=== PATIENT | male | born 1960 | race Caucasian/White ===

== ENCOUNTER 2017-09-09 09:50 | Inpatient (IN) | payer OTHER ==
[2017-09-09 09:57] LABS: POC GLUCOSE 512 mg/dL (70-99)
[2017-09-09 10:13] LABS: BASO % 0 % (0-3); EOS % 0 % (0-3); HEMATOCRIT 41.7 % (39.0-53.0); HEMOGLOBIN 14.1 g/dL (13.0-17.5); LYMPH # 0.2 x10^3/uL (1.0-4.8); LYMPH % 2 % (24-48); MEAN CORPUSCULAR HEMOGLOBIN 32 pg (25-35); MEAN CORPUSCULAR HGB CONC 34 g/dL (31-37); MEAN CORPUSCULAR VOLUME 93 fL (79-100); MONO # 1.7 x10^3/uL (0.0-1.1); MONO % 12 % (0-9); NEUT # 12.7 x10^3uL (1.8-7.7); NEUT % 87 % (31-73); PLATELET COUNT 273 x10^3/uL (140-400); RED BLOOD COUNT 4.48 x10^6/uL (4.30-5.70); RED CELL DISTRIBUTION WIDTH 15.3 % (11.5-14.5); WHITE BLOOD COUNT 14.7 x10^3/uL (4.0-11.0)
[2017-09-09 10:14] LABS: ADD MAN DIFF? YES
[2017-09-09 10:27] LABS: ALBUMIN 3.4 g/dL (3.4-5.0); ALBUMIN/GLOBULIN RATIO 0.7 (1.0-1.7); ALK PHOS 89 U/L (46-116); ALT (SGPT) 22 U/L (16-63); ANION GAP 29 (6-14); AST (SGOT) 9 U/L (15-37); BLOOD UREA NITROGEN 21 mg/dL (8-26); BUN/CREATININE RATIO 11 (6-20); CALCIUM 9.9 mg/dL (8.5-10.1); CHLORIDE 96 mmol/L (98-107); CREATININE 1.9 mg/dL (0.7-1.3); GFR 36.5; MAGNESIUM 2.2 mg/dL (1.8-2.4); POTASSIUM 5.5 mmol/L (3.5-5.1); SODIUM 133 mmol/L (136-145); TOTAL BILIRUBIN 0.6 mg/dL (0.2-1.0)
[2017-09-09] MEDS: ONDANSETRON PF 4 MG/2 ML VIAL. IV (10:28)
[2017-09-09] MEDS: IV NORMAL SALINE 1000ML BAG 1,000 ML IV ×4 (10:28→11:15)
[2017-09-09 10:32] LABS: GLUCOSE 588 mg/dL (70-99)
[2017-09-09 10:33] LABS: CARBON DIOXIDE 8 mmol/L (21-32)
[2017-09-09 10:41] LABS: PH ABG 7.11 (7.35-7.45)
[2017-09-09 10:42] LABS: BASE EXCESS ABG -23 mmol/L (-3-3); FIO2 ABG 21; HCO3 ABG 4 mmol/L (21-28); PCO2 ABG 12 mmHg (35-46); PO2 ABG 96 mmHg (65-108); SAT O2 ABG 96 % (92-99)
[2017-09-09] MEDS ORDERED: INSULIN REGULAR IV (10:44)
[2017-09-09] MEDS: IV 1/2 NORMAL SALINE 500 ML IV (10:45)
[2017-09-09] MEDS: SODIUM BICARB ADULT 8.4% 50 MEQ/50 ML DISP.SYRIN. IV (10:52)
[2017-09-09] MEDS: INSULIN REGULAR VIAL 150 UNIT in 0.9 % SODIUM CHLORIDE 150ML 150 ML IV ×2 (10:58→21:51)
[2017-09-09] MEDS: IV DEXTROSE 5 %-0.45 % NACL 1,000 ML IV (10:59)
[2017-09-09] MEDS ORDERED: ONDANSETRON ODT 4 MG TAB.RAPDIS. PO (11:00)
[2017-09-09] MEDS ORDERED: traMADol 50 MG TABLET PO (11:00)
[2017-09-09 11:05] LABS: LACTIC ACID 3.2 mmol/L (0.4-2.0)
[2017-09-09 11:19] LABS: % BANDS 39 % (0-9); % LYMPHS 2 % (24-48); % METAS 3 % (0-0); % MONOS 12 % (0-10); % SEGS 44 % (35-66)
[2017-09-09] MEDS: IV 1/2 NORMAL SALINE 1,000 ML IV (11:19)
[2017-09-09 11:20] LABS: PLT ESTIMATE ADEQUATE (ADEQUATE); TOXIC VACUOLATION SLIGHT
[2017-09-09 11:56] LABS: POC GLUCOSE 469 mg/dL (70-99)
[2017-09-09 12:01] LABS: BILIRUBIN,URINE SMALL (NEG); CLARITY,URINE CLEAR; COLOR,URINE YELLOW; GLUCOSE,URINE >=1000 mg/dL (NEG); NITRITE,URINE NEGATIVE (NEG); PH,URINE 5.5; PROTEIN,URINE 30 mg/dL (NEG-TRACE); UROBILINOGEN,URINE 0.2 mg/dL (0.2 mg/dL)
[2017-09-09 12:02] LABS: BACTERIA,URINE FEW /HPF (0-FEW); HYALINE CASTS, URINE OCCASIONAL /HPF; RBC,URINE OCC /HPF (0-2); SQUAMOUS EPITHELIAL CELL,UR OCC /LPF; WBC,URINE OCC /HPF (0-4)
[2017-09-09 12:52] LABS: ANION GAP 27 (6-14); BLOOD UREA NITROGEN 20 mg/dL (8-26); CALCIUM 9.1 mg/dL (8.5-10.1); CHLORIDE 101 mmol/L (98-107); CREATININE 1.6 mg/dL (0.7-1.3); GFR 44.5; GLUCOSE 455 mg/dL (70-99); POTASSIUM 4.4 mmol/L (3.5-5.1); SODIUM 136 mmol/L (136-145)
[2017-09-09 12:54] LABS: CARBON DIOXIDE 8 mmol/L (21-32)
[2017-09-09 12:58] LABS: POC GLUCOSE 401 mg/dL (70-99)
[2017-09-09 13:00] LABS: LACTIC ACID 2.4 mmol/L (0.4-2.0)
[2017-09-09 13:28] LABS: MAGNESIUM 2.3 mg/dL (1.8-2.4)
[2017-09-09 14:25] LABS: POC GLUCOSE 335 mg/dL (70-99)
[2017-09-09 15:12] LABS: POC GLUCOSE 287 mg/dL (70-99)
[2017-09-09 16:02] LABS: POC GLUCOSE 247 mg/dL (70-99)
[2017-09-09 17:19] LABS: ANION GAP 19 (6-14); BLOOD UREA NITROGEN 16 mg/dL (8-26); CALCIUM 8.2 mg/dL (8.5-10.1); CHLORIDE 105 mmol/L (98-107); CREATININE 1.3 mg/dL (0.7-1.3); GFR 56.5; GLUCOSE 259 mg/dL (70-99); MAGNESIUM 1.9 mg/dL (1.8-2.4); PHOSPHORUS 1.1 mg/dL (2.6-4.7); POTASSIUM 3.5 mmol/L (3.5-5.1); SODIUM 135 mmol/L (136-145)
[2017-09-09 17:23] LABS: CARBON DIOXIDE 11 mmol/L (21-32)
[2017-09-09 17:26] LABS: POC GLUCOSE 219 mg/dL (70-99)
[2017-09-09 17:40] LABS: LACTIC ACID 1.6 mmol/L (0.4-2.0)
[2017-09-09] MEDS: IV DEXTROSE 5% - 0.9 % NACL 1,000 ML IV ×2 (17:45→21:45)
[2017-09-09 18:12] LABS: POC GLUCOSE 200 mg/dL (70-99)
[2017-09-09] MEDS: ALBUTEROL SULFATE 2.5 MG/3 ML NEBU. NEB ×2 (18:17→21:16)
[2017-09-09 19:54] LABS: POC GLUCOSE 192 mg/dL (70-99)
[2017-09-09 20:41] LABS: POC GLUCOSE 215 mg/dL (70-99)
[2017-09-09 21:09] LABS: MRSA BY PCR Negative (Negative)
[2017-09-09 21:14] LABS: ANION GAP 15 (6-14); BLOOD UREA NITROGEN 14 mg/dL (8-26); CALCIUM 8.7 mg/dL (8.5-10.1); CARBON DIOXIDE 13 mmol/L (21-32); CHLORIDE 106 mmol/L (98-107); CREATININE 1.3 mg/dL (0.7-1.3); GFR 56.5; GLUCOSE 224 mg/dL (70-99); MAGNESIUM 1.6 mg/dL (1.8-2.4); SODIUM 134 mmol/L (136-145)
[2017-09-09 21:19] LABS: POTASSIUM 2.6 mmol/L (3.5-5.1)
[2017-09-09 21:30] LABS: PHOSPHORUS < 0.5 mg/dL (2.6-4.7)
[2017-09-09 21:38] LABS: NT-PRO BNP 825 pg/mL (0-124)
[2017-09-09] MEDS ORDERED: NOREPINEPHRIN PREMIX 250 ML IV (21:45)
[2017-09-09] MEDS: POTASSIUM CHLORIDE IV (21:50)
[2017-09-09] MEDS: 1/2 NORMAL SALINE IV (21:50)
[2017-09-09] MEDS: cefTRIAXone IV Push 1 GM VIAL. IVP (22:21)
[2017-09-09 22:23] LABS: HEMOGLOBIN A1C 11.7 % (4.8-5.6)
[2017-09-09 22:32] LABS: POC GLUCOSE 212 mg/dL (70-99)
[2017-09-09] MEDS: SODIUM PHOSPHATE 40 MMOL in IV NORMAL SALINE 500ML BAG 500 ML IV (22:47)
[2017-09-09] MEDS: MAGNESIUM SULFATE 4GM 100 ML IV (22:47)
[2017-09-09 23:12] LABS: POC GLUCOSE 205 mg/dL (70-99)
[2017-09-10] LABS: POC GLUCOSE 190 mg/dL (70-99)
[2017-09-10 01:00] LABS: POC GLUCOSE 163 mg/dL (70-99)
[2017-09-10] MEDS: IV DEXTROSE 5% - 0.9 % NACL 1,000 ML IV ×2 (01:45→05:45)
[2017-09-10 02:56] LABS: POC GLUCOSE 161 mg/dL (70-99)
[2017-09-10 03:02] LABS: POC GLUCOSE 135 mg/dL (70-99)
[2017-09-10] MEDS: POTASSIUM CL 40MEQ IN 0.9%NACL 1,000 ML IV ×2 (03:39→13:31)
[2017-09-10 04:26] LABS: POC GLUCOSE 137 mg/dL (70-99)
[2017-09-10 05:04] LABS: ADD MAN DIFF? NO
[2017-09-10 05:13] LABS: BASO % 0 % (0-3); EOS % 0 % (0-3); HEMATOCRIT 35.5 % (39.0-53.0); HEMOGLOBIN 12.7 g/dL (13.0-17.5); LYMPH # 0.3 x10^3/uL (1.0-4.8); LYMPH % 5 % (24-48); MEAN CORPUSCULAR HEMOGLOBIN 31 pg (25-35); MEAN CORPUSCULAR HGB CONC 36 g/dL (31-37); MEAN CORPUSCULAR VOLUME 88 fL (79-100); MONO % 18 % (0-9); NEUT # 4.2 x10^3uL (1.8-7.7); NEUT % 77 % (31-73); PLATELET COUNT 169 x10^3/uL (140-400); RED BLOOD COUNT 4.05 x10^6/uL (4.30-5.70); RED CELL DISTRIBUTION WIDTH 14.2 % (11.5-14.5); WHITE BLOOD COUNT 5.5 x10^3/uL (4.0-11.0)
[2017-09-10 05:28] LABS: POC GLUCOSE 150 mg/dL (70-99)
[2017-09-10 05:45] LABS: ANION GAP 12 (6-14); BLOOD UREA NITROGEN 11 mg/dL (8-26); CALCIUM 9.3 mg/dL (8.5-10.1); CARBON DIOXIDE 17 mmol/L (21-32); CHLORIDE 107 mmol/L (98-107); CREATININE 1.1 mg/dL (0.7-1.3); GFR 68.5; GLUCOSE 146 mg/dL (70-99); SODIUM 136 mmol/L (136-145)
[2017-09-10 05:49] LABS: POTASSIUM 2.8 mmol/L (3.5-5.1)
[2017-09-10] MEDS ORDERED: POTASSIUM CL 40MEQ D5-0.45NACL 1,000 ML IV (06:00)
[2017-09-10] MEDS: 1/2 NORMAL SALINE IV (06:10)
[2017-09-10] MEDS: POTASSIUM CHLORIDE IV (06:10)
[2017-09-10 06:38] LABS: POC GLUCOSE 131 mg/dL (70-99)
[2017-09-10] MEDS: IV NORMAL SALINE 500ML BAG 500 ML IV ×2 (08:30→12:05)
[2017-09-10] MEDS: ALBUTEROL SULFATE 2.5 MG/3 ML NEBU. NEB ×4 (08:51→19:49)
[2017-09-10] MEDS: IV NORMAL SALINE 1000ML BAG 1,000 ML IV ×2 (08:59→10:02)
[2017-09-10] MEDS ORDERED: MAGNESIUM SULFATE 4GM 100 ML IV (09:00)
[2017-09-10 09:38] LABS: POC GLUCOSE 102 mg/dL (70-99)
[2017-09-10] MEDS: IV DEXTROSE 5 %-0.45 % NACL 1,000 ML IV (09:45)
[2017-09-10] MEDS: NOREPINEPHRIN PREMIX 250 ML IV (09:51)
[2017-09-10 10:08] LABS: BASE EXCESS ABG -13 mmol/L (-3-3); HCO3 ABG 16 mmol/L (21-28); PCO2 ABG 50 mmHg (35-46); PO2 ABG 62 mmHg (65-108); SAT O2 ABG 91 % (92-99)
[2017-09-10 10:09] LABS: FIO2 ABG 36; PH ABG 7.14 (7.35-7.45)
[2017-09-10] MEDS ORDERED: DEXTROSE 50% 25 GM / 50ML DISP.SYRIN. IV (10:30)
[2017-09-10] MEDS: SODIUM BICARBONATE VIAL 100 MEQ in IV 1/2 NORMAL SALINE 1,000 ML IV ×2 (10:51→21:31)
[2017-09-10 11:09] LABS: POC GLUCOSE 107 mg/dL (70-99)
[2017-09-10 11:09] LABS: POC GLUCOSE 139 mg/dL (70-99)
[2017-09-10 11:29] LABS: POC GLUCOSE 174 mg/dL (70-99)
[2017-09-10] MEDS: VASOPRESSIN 40 UNIT in IV NORMAL SALINE 100ML 100 ML IV (11:45)
[2017-09-10 13:31] LABS: POC GLUCOSE 256 mg/dL (70-99)
[2017-09-10] MEDS: INSULIN LISPRO 300 UNITS/3 ML INSULN.PEN. SQ ×3 (14:09→17:17)
[2017-09-10] MEDS: MAGNESIUM SULFATE 2GM 50 ML IV (14:15)
[2017-09-10] MEDS ORDERED: AZITHRMYCN 500MG IVPB FOR OMNI 250 ML IV (14:15)
[2017-09-10] MEDS: AZITHROMYCIN 500 MG in IV NORMAL SALINE 250ML 250 ML IV (15:13)
[2017-09-10] MEDS: ENOXAPARIN 40 MG/0.4 ML SYRINGE. SQ (15:14)
[2017-09-10 16:27] LABS: ANION GAP 20 (6-14); BLOOD UREA NITROGEN 17 mg/dL (8-26); CALCIUM 7.4 mg/dL (8.5-10.1); CHLORIDE 106 mmol/L (98-107); GFR 76.5; GLUCOSE 323 mg/dL (70-99); POTASSIUM 3.7 mmol/L (3.5-5.1); SODIUM 137 mmol/L (136-145)
[2017-09-10 16:29] LABS: CARBON DIOXIDE 11 mmol/L (21-32)
[2017-09-10] MEDS: SODIUM BICARB ADULT 8.4% 50 MEQ/50 ML DISP.SYRIN. IV ×2 (17:06→17:07)
[2017-09-10 17:15] LABS: MAGNESIUM 2.3 mg/dL (1.8-2.4)
[2017-09-10 17:28] LABS: POC GLUCOSE 282 mg/dL (70-99)
[2017-09-10] MEDS ORDERED: INSULIN GLARGINE 300 UNITS/3 ML INSULN.PEN. SQ (21:00)
[2017-09-10] MEDS: PIPERACILLIN/TAZOBACTAM 3.375 GM in IV NORMAL SALINE 50ML 50 ML IV (21:31)
[2017-09-10] MEDS: INSULIN GLARGINE 300 UNITS/3 ML INSULN.PEN. SQ (21:49)
[2017-09-10] MEDS: ONDANSETRON PF 4 MG/2 ML VIAL. IV (22:36)
[2017-09-10 22:39] LABS: POC GLUCOSE 284 mg/dL (70-99)
[2017-09-11] MEDS: ONDANSETRON PF 4 MG/2 ML VIAL. IV (03:40)
[2017-09-11] MEDS: NOREPINEPHRIN PREMIX 250 ML IV ×4 (05:00→23:27)
[2017-09-11] MEDS: SODIUM BICARBONATE VIAL 100 MEQ in IV 1/2 NORMAL SALINE 1,000 ML IV ×2 (05:00→12:22)
[2017-09-11] MEDS: PIPERACILLIN/TAZOBACTAM 3.375 GM in IV NORMAL SALINE 50ML 50 ML IV ×4 (06:11→23:44)
[2017-09-11] MEDS: PHENYLEPHRINE INJ 80 MG in IV NORMAL SALINE 250ML 250 ML IV (06:32)
[2017-09-11 06:33] LABS: ADD MAN DIFF? NO
[2017-09-11 06:37] LABS: BASO % 0 % (0-3); EOS % 0 % (0-3); HEMATOCRIT 33.1 % (39.0-53.0); HEMOGLOBIN 11.3 g/dL (13.0-17.5); LYMPH # 0.4 x10^3/uL (1.0-4.8); LYMPH % 2 % (24-48); MEAN CORPUSCULAR HEMOGLOBIN 31 pg (25-35); MEAN CORPUSCULAR HGB CONC 34 g/dL (31-37); MEAN CORPUSCULAR VOLUME 91 fL (79-100); MONO # 2.2 x10^3/uL (0.0-1.1); MONO % 11 % (0-9); NEUT % 87 % (31-73); PLATELET COUNT 261 x10^3/uL (140-400); RED BLOOD COUNT 3.62 x10^6/uL (4.30-5.70); WHITE BLOOD COUNT 19.6 x10^3/uL (4.0-11.0)
[2017-09-11 06:49] LABS: ANION GAP 14 (6-14); BLOOD UREA NITROGEN 27 mg/dL (8-26); CALCIUM 7.4 mg/dL (8.5-10.1); CARBON DIOXIDE 19 mmol/L (21-32); CHLORIDE 108 mmol/L (98-107); CREATININE 1.7 mg/dL (0.7-1.3); GFR 41.5; GLUCOSE 356 mg/dL (70-99); POTASSIUM 4.6 mmol/L (3.5-5.1); SODIUM 141 mmol/L (136-145)
[2017-09-11] MEDS: IV NORMAL SALINE 500ML BAG 500 ML IV (07:30)
[2017-09-11] MEDS: ALBUTEROL SULFATE 2.5 MG/3 ML NEBU. NEB ×4 (07:40→19:58)
[2017-09-11] MEDS: INSULIN LISPRO 300 UNITS/3 ML INSULN.PEN. SQ ×4 (08:35→12:00)
[2017-09-11 08:57] LABS: POC GLUCOSE 337 mg/dL (70-99)
[2017-09-11 09:20] LABS: HCO3 ABG 10 mmol/L (21-28); PCO2 ABG 30 mmHg (35-46); PH ABG 7.13 (7.35-7.45); PO2 ABG 79 mmHg (65-108)
[2017-09-11 09:21] LABS: BASE EXCESS ABG -18 mmol/L (-3-3); FIO2 ABG 50; O2 DELIVERY DEVICE Venti Mask; SAT O2 ABG 96 % (92-99)
[2017-09-11] MEDS ORDERED: SODIUM BICARB ADULT 8.4% 50 MEQ/50 ML DISP.SYRIN. (09:28)
[2017-09-11] MEDS: SODIUM BICARB ADULT 8.4% 50 MEQ/50 ML DISP.SYRIN. IV ×2 (09:32)
[2017-09-11 09:48] LABS: POC GLUCOSE 420 mg/dL (70-99)
[2017-09-11 10:10] LABS: ADD MAN DIFF? NO
[2017-09-11 10:12] LABS: BASO % 0 % (0-3); EOS % 0 % (0-3); HEMATOCRIT 30.1 % (39.0-53.0); HEMOGLOBIN 10.3 g/dL (13.0-17.5); LYMPH # 0.2 x10^3/uL (1.0-4.8); LYMPH % 2 % (24-48); MEAN CORPUSCULAR HEMOGLOBIN 31 pg (25-35); MEAN CORPUSCULAR HGB CONC 34 g/dL (31-37); MEAN CORPUSCULAR VOLUME 91 fL (79-100); MONO # 1.2 x10^3/uL (0.0-1.1); MONO % 11 % (0-9); NEUT # 9.6 x10^3uL (1.8-7.7); NEUT % 87 % (31-73); PLATELET COUNT 178 x10^3/uL (140-400); RED BLOOD COUNT 3.31 x10^6/uL (4.30-5.70); RED CELL DISTRIBUTION WIDTH 14.9 % (11.5-14.5)
[2017-09-11] MEDS: IV 1/2 NORMAL SALINE 1,000 ML IV ×4 (10:14→21:53)
[2017-09-11] MEDS: INSULIN REGULAR VIAL 150 UNIT in 0.9 % SODIUM CHLORIDE 150ML 150 ML IV ×4 (10:27→21:22)
[2017-09-11 10:30] LABS: ANION GAP 21 (6-14); BLOOD UREA NITROGEN 33 mg/dL (8-26); CALCIUM 7.4 mg/dL (8.5-10.1); CARBON DIOXIDE 14 mmol/L (21-32); CHLORIDE 105 mmol/L (98-107); CREATININE 2.1 mg/dL (0.7-1.3); GFR 32.5; GLUCOSE 467 mg/dL (70-99); POTASSIUM 3.8 mmol/L (3.5-5.1); SODIUM 140 mmol/L (136-145)
[2017-09-11 10:38] LABS: POC GLUCOSE 406 mg/dL (70-99)
[2017-09-11 10:48] LABS: ALBUMIN 1.8 g/dL (3.4-5.0); ALK PHOS 68 U/L (46-116); ALT (SGPT) 32 U/L (16-63); AST (SGOT) 38 U/L (15-37); DIRECT BILIRUBIN 0.2 mg/dL (0.0-0.2); LIPASE 240 U/L (73-393); MAGNESIUM 2.1 mg/dL (1.8-2.4); PHOSPHORUS 2.9 mg/dL (2.6-4.7); TOTAL BILIRUBIN 0.6 mg/dL (0.2-1.0); TOTAL PROTEIN 5.5 g/dL (6.4-8.2)
[2017-09-11 11:31] LABS: BILIRUBIN,URINE NEGATIVE (NEG); CLARITY,URINE CLEAR; COLOR,URINE YELLOW; GLUCOSE,URINE >=1000 mg/dL (NEG); NITRITE,URINE NEGATIVE (NEG); PH,URINE 5.5; PROTEIN,URINE 100 mg/dL (NEG-TRACE); UROBILINOGEN,URINE 0.2 mg/dL (0.2 mg/dL)
[2017-09-11 11:32] LABS: WBC,URINE OCC /HPF (0-4)
[2017-09-11 11:33] LABS: BACTERIA,URINE FEW /HPF (0-FEW)
[2017-09-11 11:38] LABS: POC GLUCOSE 385 mg/dL (70-99)
[2017-09-11] MEDS: POTASSIUM CL 40MEQ IN 0.9%NACL 1,000 ML IV (12:22)
[2017-09-11 12:50] LABS: POC GLUCOSE 365 mg/dL (70-99)
[2017-09-11 12:50] LABS: POC GLUCOSE 363 mg/dL (70-99)
[2017-09-11 13:32] LABS: POC GLUCOSE 332 mg/dL (70-99)
[2017-09-11 14:38] LABS: POC GLUCOSE 331 mg/dL (70-99)
[2017-09-11] MEDS: ENOXAPARIN 40 MG/0.4 ML SYRINGE. SQ (14:40)
[2017-09-11] MEDS: AZITHROMYCIN 500 MG in IV NORMAL SALINE 250ML 250 ML IV (14:40)
[2017-09-11] MEDS: carBAMazepine 200 MG TABLET PO ×2 (14:43→21:29)
[2017-09-11] MEDS: busPIRone 5 MG TABLET. PO ×2 (14:43→21:29)
[2017-09-11 14:58] LABS: ANION GAP 21 (6-14); BLOOD UREA NITROGEN 36 mg/dL (8-26); CALCIUM 6.6 mg/dL (8.5-10.1); CARBON DIOXIDE 15 mmol/L (21-32); CHLORIDE 108 mmol/L (98-107); CREATININE 2.5 mg/dL (0.7-1.3); GFR 26.6; GLUCOSE 319 mg/dL (70-99); MAGNESIUM 2.2 mg/dL (1.8-2.4); PHOSPHORUS 1.1 mg/dL (2.6-4.7); SODIUM 144 mmol/L (136-145)
[2017-09-11 15:05] LABS: POTASSIUM 2.6 mmol/L (3.5-5.1)
[2017-09-11] MEDS: POTASSIUM CHLORIDE 20MEQ 50 ML IV ×3 (15:58→18:31)
[2017-09-11] MEDS: SODIUM PHOSPHATE 20 MMOL in IV DEXTROSE 5% 250 ML IV ×2 (16:38→22:42)
[2017-09-11 16:49] LABS: POC GLUCOSE 256 mg/dL (70-99)
[2017-09-11 17:04] LABS: POC GLUCOSE 306 mg/dL (70-99)
[2017-09-11 18:08] LABS: POC GLUCOSE 255 mg/dL (70-99)
[2017-09-11 19:03] LABS: POC GLUCOSE 222 mg/dL (70-99)
[2017-09-11] MEDS ORDERED: PIPERACILLIN/TAZOBACTAM 3.375 GM in IV NORMAL SALINE 50ML 50 ML IV (20:00)
[2017-09-11 20:14] LABS: POC GLUCOSE 209 mg/dL (70-99)
[2017-09-11 20:16] LABS: BASE EXCESS ABG -8 mmol/L (-3-3); HCO3 ABG 16 mmol/L (21-28); PCO2 ABG 28 mmHg (35-46); PH ABG 7.36 (7.35-7.45); PO2 ABG 100 mmHg (65-108); SAT O2 ABG 97 % (92-99)
[2017-09-11 20:17] LABS: FIO2 ABG 40
[2017-09-11 21:21] LABS: POC GLUCOSE 176 mg/dL (70-99)
[2017-09-11] MEDS: OLANZapine 5 MG TABLET PO (21:28)
[2017-09-11] MEDS: NORTRIPTYLINE 25 MG CAPSULE PO (21:28)
[2017-09-11] MEDS: LACTOBACILLUS RHAMNOSUS GG 1 CAPSULE. PO (21:29)
[2017-09-11] MEDS: MIRTAZAPINE 15 MG TABLET PO (21:29)
[2017-09-11 21:40] LABS: ANION GAP 11 (6-14); BLOOD UREA NITROGEN 39 mg/dL (8-26); CALCIUM 7.3 mg/dL (8.5-10.1); CARBON DIOXIDE 19 mmol/L (21-32); CHLORIDE 109 mmol/L (98-107); CREATININE 3.1 mg/dL (0.7-1.3); GFR 20.7; GLUCOSE 204 mg/dL (70-99); MAGNESIUM 2.1 mg/dL (1.8-2.4); PHOSPHORUS 1.3 mg/dL (2.6-4.7); SODIUM 139 mmol/L (136-145)
[2017-09-11 21:45] LABS: POTASSIUM 2.6 mmol/L (3.5-5.1)
[2017-09-11] MEDS: POTASSIUM CHLORIDE IV (22:34)
[2017-09-11] MEDS: 1/2 NORMAL SALINE IV (22:34)
[2017-09-11 22:48] LABS: POC GLUCOSE 208 mg/dL (70-99)
[2017-09-12 01:03] LABS: POC GLUCOSE 176 mg/dL (70-99)
[2017-09-12 01:03] LABS: POC GLUCOSE 196 mg/dL (70-99)
[2017-09-12] MEDS: IV 1/2 NORMAL SALINE 1,000 ML IV ×4 (02:31→18:12)
[2017-09-12] MEDS: INSULIN REGULAR VIAL 150 UNIT in 0.9 % SODIUM CHLORIDE 150ML 150 ML IV (02:58)
[2017-09-12 03:09] LABS: POC GLUCOSE 141 mg/dL (70-99)
[2017-09-12 03:09] LABS: POC GLUCOSE 149 mg/dL (70-99)
[2017-09-12 04:30] LABS: ADD MAN DIFF? NO
[2017-09-12 04:35] LABS: BASO % 0 % (0-3); EOS % 0 % (0-3); HEMATOCRIT 25.9 % (39.0-53.0); HEMOGLOBIN 9.3 g/dL (13.0-17.5); LYMPH # 0.7 x10^3/uL (1.0-4.8); LYMPH % 6 % (24-48); MEAN CORPUSCULAR HEMOGLOBIN 32 pg (25-35); MEAN CORPUSCULAR HGB CONC 36 g/dL (31-37); MEAN CORPUSCULAR VOLUME 87 fL (79-100); MONO # 1.1 x10^3/uL (0.0-1.1); MONO % 9 % (0-9); NEUT # 10.2 x10^3uL (1.8-7.7); NEUT % 85 % (31-73); PLATELET COUNT 173 x10^3/uL (140-400); RED BLOOD COUNT 2.96 x10^6/uL (4.30-5.70); RED CELL DISTRIBUTION WIDTH 14.2 % (11.5-14.5)
[2017-09-12 04:40] LABS: POC GLUCOSE 112 mg/dL (70-99)
[2017-09-12 04:55] LABS: ANION GAP 13 (6-14); BLOOD UREA NITROGEN 37 mg/dL (8-26); CARBON DIOXIDE 18 mmol/L (21-32); CHLORIDE 109 mmol/L (98-107); CREATININE 3.3 mg/dL (0.7-1.3); GFR 19.3; GLUCOSE 111 mg/dL (70-99); MAGNESIUM 1.9 mg/dL (1.8-2.4); PHOSPHORUS 1.4 mg/dL (2.6-4.7); SODIUM 140 mmol/L (136-145)
[2017-09-12 05:08] LABS: POTASSIUM 2.5 mmol/L (3.5-5.1)
[2017-09-12 05:30] LABS: POC GLUCOSE 86 mg/dL (70-99)
[2017-09-12] MEDS: PIPERACILLIN/TAZOBACTAM 3.375 GM in IV NORMAL SALINE 50ML 50 ML IV ×3 (06:02→18:08)
[2017-09-12] MEDS: SODIUM PHOSPHATE 40 MMOL in IV DEXTROSE 5% 250 ML IV (06:15)
[2017-09-12 06:30] LABS: POC GLUCOSE 84 mg/dL (70-99)
[2017-09-12] MEDS: POTASSIUM CHLORIDE 20MEQ 50 ML IV ×6 (06:58→13:15)
[2017-09-12] MEDS: ALBUTEROL SULFATE 2.5 MG/3 ML NEBU. NEB ×4 (08:17→19:14)
[2017-09-12 08:35] LABS: BASE EXCESS ABG -7 mmol/L (-3-3); FIO2 ABG 40; HCO3 ABG 16 mmol/L (21-28); PCO2 ABG 24 mmHg (35-46); PH ABG 7.44 (7.35-7.45); PO2 ABG 88 mmHg (65-108); SAT O2 ABG 97 % (92-99)
[2017-09-12] MEDS: MAGNESIUM SULFATE 4GM 100 ML IV (09:00)
[2017-09-12] MEDS: LACTOBACILLUS RHAMNOSUS GG 1 CAPSULE. PO ×2 (09:02→20:59)
[2017-09-12] MEDS: carBAMazepine 200 MG TABLET PO ×3 (09:02→20:59)
[2017-09-12] MEDS: busPIRone 5 MG TABLET. PO ×2 (09:02→21:01)
[2017-09-12] MEDS: INSULIN GLARGINE 300 UNITS/3 ML INSULN.PEN. SQ ×2 (13:17→21:03)
[2017-09-12] MEDS: AZITHROMYCIN 500 MG in IV NORMAL SALINE 250ML 250 ML IV (15:43)
[2017-09-12] MEDS: ENOXAPARIN 30 MG/0.3 ML SYRINGE. SQ (15:43)
[2017-09-12 16:39] LABS: POC GLUCOSE 103 mg/dL (70-99)
[2017-09-12 16:39] LABS: POC GLUCOSE 91 mg/dL (70-99)
[2017-09-12 16:39] LABS: POC GLUCOSE 99 mg/dL (70-99)
[2017-09-12 16:39] LABS: POC GLUCOSE 92 mg/dL (70-99)
[2017-09-12 16:39] LABS: POC GLUCOSE 81 mg/dL (70-99)
[2017-09-12 16:39] LABS: POC GLUCOSE 78 mg/dL (70-99)
[2017-09-12] MEDS: INSULIN LISPRO 300 UNITS/3 ML INSULN.PEN. SQ (16:42)
[2017-09-12 17:25] LABS: PCO2 ABG 34 mmHg (35-46); PH ABG 7.21 (7.35-7.45)
[2017-09-12 17:26] LABS: BASE EXCESS ABG -14 mmol/L (-3-3); FIO2 ABG 40; HCO3 ABG 13 mmol/L (21-28); PO2 ABG 75 mmHg (65-108); SAT O2 ABG 92 % (92-99)
[2017-09-12] MEDS: FUROSEMIDE 40 MG/4 ML VIAL. IVP (18:08)
[2017-09-12 18:16] LABS: POC GLUCOSE 192 mg/dL (70-99)
[2017-09-12 20:12] LABS: POTASSIUM 4.2 mmol/L (3.5-5.1)
[2017-09-12] MEDS: MIRTAZAPINE 15 MG TABLET PO (21:00)
[2017-09-12] MEDS: NORTRIPTYLINE 25 MG CAPSULE PO (21:01)
[2017-09-12] MEDS: OLANZapine 5 MG TABLET PO (21:01)
[2017-09-13] MEDS: PIPERACILLIN/TAZOBACTAM 3.375 GM in IV NORMAL SALINE 50ML 50 ML IV ×3 (00:52→15:46)
[2017-09-13] MEDS: IV 1/2 NORMAL SALINE 1,000 ML IV ×3 (04:47→11:21)
[2017-09-13] MEDS: ALBUTEROL SULFATE 2.5 MG/3 ML NEBU. NEB ×4 (08:15→19:49)
[2017-09-13] MEDS: MAGNESIUM SULFATE 4GM 100 ML IV (08:57)
[2017-09-13] MEDS: LACTOBACILLUS RHAMNOSUS GG 1 CAPSULE. PO ×2 (08:58→21:53)
[2017-09-13] MEDS: FUROSEMIDE 40 MG/4 ML VIAL. IVP (08:58)
[2017-09-13] MEDS: busPIRone 5 MG TABLET. PO ×2 (08:58→21:54)
[2017-09-13] MEDS: carBAMazepine 200 MG TABLET PO ×3 (08:59→21:53)
[2017-09-13] MEDS: INSULIN LISPRO 300 UNITS/3 ML INSULN.PEN. SQ ×3 (09:01→17:00)
[2017-09-13 09:08] LABS: POC GLUCOSE 221 mg/dL (70-99)
[2017-09-13 09:53] LABS: ADD MAN DIFF? NO
[2017-09-13 10:11] LABS: ANION GAP 16 (6-14); BLOOD UREA NITROGEN 48 mg/dL (8-26); CALCIUM 6.3 mg/dL (8.5-10.1); CARBON DIOXIDE 17 mmol/L (21-32); CHLORIDE 105 mmol/L (98-107); CREATININE 4.6 mg/dL (0.7-1.3); GFR 13.1; GLUCOSE 275 mg/dL (70-99); POTASSIUM 4.1 mmol/L (3.5-5.1); SODIUM 138 mmol/L (136-145)
[2017-09-13 10:42] LABS: BASO % 0 % (0-3); EOS % 0 % (0-3); HEMATOCRIT 30.5 % (39.0-53.0); HEMOGLOBIN 10.6 g/dL (13.0-17.5); LYMPH # 0.3 x10^3/uL (1.0-4.8); LYMPH % 3 % (24-48); MEAN CORPUSCULAR HEMOGLOBIN 31 pg (25-35); MEAN CORPUSCULAR HGB CONC 35 g/dL (31-37); MEAN CORPUSCULAR VOLUME 90 fL (79-100); MONO # 1.3 x10^3/uL (0.0-1.1); MONO % 10 % (0-9); NEUT # 11.6 x10^3uL (1.8-7.7); NEUT % 87 % (31-73); PLATELET COUNT 202 x10^3/uL (140-400); RED BLOOD COUNT 3.38 x10^6/uL (4.30-5.70); RED CELL DISTRIBUTION WIDTH 14.7 % (11.5-14.5); WHITE BLOOD COUNT 13.3 x10^3/uL (4.0-11.0)
[2017-09-13] MEDS ORDERED: SODIUM BICARB ADULT 8.4% 50 MEQ/50 ML DISP.SYRIN. (13:57)
[2017-09-13] MEDS: SODIUM BICARB ADULT 8.4% 50 MEQ/50 ML DISP.SYRIN. IV (15:43)
[2017-09-13] MEDS: ENOXAPARIN 30 MG/0.3 ML SYRINGE. SQ (15:46)
[2017-09-13] MEDS: AZITHROMYCIN 500 MG in IV NORMAL SALINE 250ML 250 ML IV (15:46)
[2017-09-13] MEDS: INSULIN REGULAR VIAL 150 UNIT in 0.9 % SODIUM CHLORIDE 150ML 150 ML IV (15:48)
[2017-09-13 17:20] LABS: PCO2 ABG 39 mmHg (35-46); PH ABG 7.17 (7.35-7.45)
[2017-09-13 17:21] LABS: BASE EXCESS ABG -11 mmol/L (-3-3); FIO2 ABG 40; HCO3 ABG 16 mmol/L (21-28); PO2 ABG 89 mmHg (65-108); SAT O2 ABG 95 % (92-99)
[2017-09-13 17:37] LABS: LACTIC ACID 0.8 mmol/L (0.4-2.0)
[2017-09-13] MEDS ORDERED: SUCCINYLCHOLINE 200 MG/10 ML VIAL. (18:00)
[2017-09-13] MEDS ORDERED: MIDAZOLAM HCL/PF 5 MG/5 ML VIAL. (18:01)
[2017-09-13] MEDS: MIDAZOLAM 100mg/100ml NS BAG 100 ML IV (18:57)
[2017-09-13] MEDS: MIDAZOLAM HCL/PF 5 MG/5 ML VIAL. IV (19:07)
[2017-09-13] MEDS: SUCCINYLCHOLINE 200 MG/10 ML VIAL. IV (19:07)
[2017-09-13 20:02] LABS: ANION GAP 13 (6-14); BLOOD UREA NITROGEN 51 mg/dL (8-26); CALCIUM 6.1 mg/dL (8.5-10.1); CARBON DIOXIDE 21 mmol/L (21-32); CHLORIDE 108 mmol/L (98-107); GFR 11.9; GLUCOSE 112 mg/dL (70-99); POTASSIUM 3.2 mmol/L (3.5-5.1); SODIUM 142 mmol/L (136-145)
[2017-09-13 20:06] LABS: MAGNESIUM 3.4 mg/dL (1.8-2.4); PHOSPHORUS 4.6 mg/dL (2.6-4.7)
[2017-09-13] MEDS: POTASSIUM CHLORIDE 20MEQ 50 ML IV ×2 (20:27→21:54)
[2017-09-13] MEDS: INSULIN GLARGINE 300 UNITS/3 ML INSULN.PEN. SQ (21:00)
[2017-09-13 21:13] LABS: BASE EXCESS ABG -7 mmol/L (-3-3); HCO3 ABG 18 mmol/L (21-28); PCO2 ABG 36 mmHg (35-46); PH ABG 7.32 (7.35-7.45); PO2 ABG 433 mmHg (65-108)
[2017-09-13 21:14] LABS: FIO2 ABG 100; SAT O2 ABG 99 % (92-99)
[2017-09-13] MEDS: NORTRIPTYLINE 25 MG CAPSULE PO (21:53)
[2017-09-13] MEDS: MIRTAZAPINE 15 MG TABLET PO (21:54)
[2017-09-13] MEDS: OLANZapine 5 MG TABLET PO (21:54)
[2017-09-13] MEDS: DEXTROSE 50% 25 GM / 50ML DISP.SYRIN. IV (23:29)
[2017-09-14] MEDS: INSULIN REGULAR VIAL 150 UNIT in 0.9 % SODIUM CHLORIDE 150ML 150 ML IV (00:02)
[2017-09-14 00:47] LABS: ANION GAP 14 (6-14); BLOOD UREA NITROGEN 53 mg/dL (8-26); CARBON DIOXIDE 19 mmol/L (21-32); CHLORIDE 108 mmol/L (98-107); GFR 11.9; GLUCOSE 136 mg/dL (70-99); POTASSIUM 3.1 mmol/L (3.5-5.1); SODIUM 141 mmol/L (136-145)
[2017-09-14 00:51] LABS: MAGNESIUM 3.4 mg/dL (1.8-2.4); PHOSPHORUS 3.8 mg/dL (2.6-4.7)
[2017-09-14] MEDS: POTASSIUM CHLORIDE 20MEQ 50 ML IV ×4 (01:25→08:30)
[2017-09-14] MEDS: CALCIUM GLUCONATE 1,000 MG in IV NORMAL SALINE 100ML 100 ML IV (01:26)
[2017-09-14] MEDS: IV DEXTROSE 5% 1,000 ML IV ×2 (01:28→10:30)
[2017-09-14] MEDS: PIPERACILLIN/TAZOBACTAM 3.375 GM in IV NORMAL SALINE 50ML 50 ML IV ×3 (02:22→07:08)
[2017-09-14] MEDS: MIDAZOLAM 100mg/100ml NS BAG 100 ML IV ×2 (04:45→19:29)
[2017-09-14 05:17] LABS: ADD MAN DIFF? NO
[2017-09-14 05:24] LABS: BASO % 0 % (0-3); EOS % 0 % (0-3); HEMATOCRIT 25.2 % (39.0-53.0); HEMOGLOBIN 8.9 g/dL (13.0-17.5); LYMPH # 0.7 x10^3/uL (1.0-4.8); LYMPH % 7 % (24-48); MEAN CORPUSCULAR HEMOGLOBIN 31 pg (25-35); MEAN CORPUSCULAR HGB CONC 35 g/dL (31-37); MEAN CORPUSCULAR VOLUME 89 fL (79-100); MONO # 1.4 x10^3/uL (0.0-1.1); MONO % 13 % (0-9); NEUT # 8.3 x10^3uL (1.8-7.7); NEUT % 80 % (31-73); PLATELET COUNT 222 x10^3/uL (140-400); RED BLOOD COUNT 2.82 x10^6/uL (4.30-5.70); RED CELL DISTRIBUTION WIDTH 14.4 % (11.5-14.5); WHITE BLOOD COUNT 10.4 x10^3/uL (4.0-11.0)
[2017-09-14 05:49] LABS: ANION GAP 15 (6-14); BLOOD UREA NITROGEN 52 mg/dL (8-26); CALCIUM 6.3 mg/dL (8.5-10.1); CARBON DIOXIDE 17 mmol/L (21-32); CHLORIDE 109 mmol/L (98-107); CREATININE 5.1 mg/dL (0.7-1.3); GFR 11.7; GLUCOSE 139 mg/dL (70-99); POTASSIUM 3.3 mmol/L (3.5-5.1); SODIUM 141 mmol/L (136-145)
[2017-09-14 05:58] LABS: MAGNESIUM 3.2 mg/dL (1.8-2.4)
[2017-09-14 05:58] LABS: PHOSPHORUS 3.4 mg/dL (2.6-4.7)
[2017-09-14 06:08] LABS: CKMB INDEX 2.5 % (0-4); CKMB MASS 5.6 ng/mL (0.0-3.6); CREATINE KINASE 224 U/L (39-308)
[2017-09-14 06:38] LABS: PCO2 ABG 64 mmHg (35-46); PH ABG 7.07 (7.35-7.45)
[2017-09-14 06:39] LABS: BASE EXCESS ABG -12 mmol/L (-3-3); FIO2 ABG 40; HCO3 ABG 18 mmol/L (21-28); PO2 ABG 43 mmHg (65-108); SAT O2 ABG 71 % (92-99)
[2017-09-14] MEDS: INSULIN LISPRO 300 UNITS/3 ML INSULN.PEN. SQ ×3 (07:50→17:00)
[2017-09-14] MEDS: LACTOBACILLUS RHAMNOSUS GG 1 CAPSULE. PO ×2 (07:50→20:56)
[2017-09-14] MEDS: busPIRone 5 MG TABLET. PO ×2 (07:50→20:57)
[2017-09-14] MEDS: carBAMazepine 200 MG TABLET PO ×3 (07:51→20:56)
[2017-09-14] MEDS: MAGNESIUM SULFATE 4GM 100 ML IV (07:54)
[2017-09-14] MEDS: FUROSEMIDE 40 MG/4 ML VIAL. IVP (08:15)
[2017-09-14] MEDS: ALBUTEROL SULFATE 2.5 MG/3 ML NEBU. NEB ×4 (08:42→19:43)
[2017-09-14 09:03] LABS: BASE EXCESS ABG -8 mmol/L (-3-3); HCO3 ABG 16 mmol/L (21-28); PCO2 ABG 28 mmHg (35-46); PH ABG 7.37 (7.35-7.45); PO2 ABG 107 mmHg (65-108); SAT O2 ABG 97 % (92-99)
[2017-09-14 09:04] LABS: LIPASE 473 U/L (73-393)
[2017-09-14 09:04] LABS: AMYLASE 86 U/L (25-115)
[2017-09-14 09:06] LABS: FIO2 ABG 40
[2017-09-14] MEDS ORDERED: HEPARIN for IV BOLUS 10,000 UNIT/10 ML VIAL. (11:29)
[2017-09-14] MEDS: LIDOCAINE WITH 8.4% SOD BICARB 3 ML DISP.SYRIN. INJ (11:45)
[2017-09-14] MEDS ORDERED: IV NORMAL SALINE 1000ML BAG 1,000 ML IV ×2 (12:29)
[2017-09-14] MEDS ORDERED: ACETAMINOPHEN 500 MG TABLET PO (12:30)
[2017-09-14] MEDS ORDERED: LABETALOL 20 MG/4 ML DISP.SYRIN. IVP (12:30)
[2017-09-14] MEDS ORDERED: cloNIDine HCL 0.1 MG TABLET PO (12:30)
[2017-09-14] MEDS ORDERED: ALBUMIN HUMAN 25% 200 ML IV (12:30)
[2017-09-14] MEDS ORDERED: DIALYSIS PATIENT. MC (12:30)
[2017-09-14] MEDS ORDERED: diphenhydrAMINE 50 MG/ML VIAL IV ×2 (12:30)
[2017-09-14 14:37] LABS: CKMB INDEX 1.7 % (0-4); CREATINE KINASE 235 U/L (39-308)
[2017-09-14 15:33] LABS: POC GLUCOSE 101 mg/dL (70-99)
[2017-09-14 15:33] LABS: POC GLUCOSE 77 mg/dL (70-99)
[2017-09-14 15:33] LABS: POC GLUCOSE 87 mg/dL (70-99)
[2017-09-14] MEDS: PIPERACILLIN/TAZOBACTAM 2.25 GM in IV NORMAL SALINE 50ML 50 ML IV ×3 (18:00→23:56)
[2017-09-14] MEDS: ENOXAPARIN 30 MG/0.3 ML SYRINGE. SQ (18:34)
[2017-09-14] MEDS: AZITHROMYCIN 500 MG in IV NORMAL SALINE 250ML 250 ML IV (18:34)
[2017-09-14 18:43] LABS: POC GLUCOSE 106 mg/dL (70-99)
[2017-09-14] MEDS: NORTRIPTYLINE 25 MG CAPSULE PO (20:56)
[2017-09-14] MEDS: INSULIN GLARGINE 300 UNITS/3 ML INSULN.PEN. SQ (20:57)
[2017-09-14] MEDS: MIRTAZAPINE 15 MG TABLET PO (20:57)
[2017-09-14] MEDS: OLANZapine 5 MG TABLET PO (20:57)
[2017-09-14] MEDS: CHLORHEXIDINE 0.12% 15 ML MOUTHWASH. MM (20:57)
[2017-09-15] MEDS: MIDAZOLAM 100mg/100ml NS BAG 100 ML IV ×2 (02:25→20:02)
[2017-09-15 03:17] LABS: HEP B SURFACE ABDY Non Reactive (.); HEP B SURFACE AG Negative (Negative)
[2017-09-15] MEDS: IV DEXTROSE 5% 1,000 ML IV ×3 (05:16→17:40)
[2017-09-15] MEDS: PIPERACILLIN/TAZOBACTAM 2.25 GM in IV NORMAL SALINE 50ML 50 ML IV ×3 (06:00→21:40)
[2017-09-15 06:08] LABS: ADD MAN DIFF? NO
[2017-09-15 06:35] LABS: ANION GAP 11 (6-14); BLOOD UREA NITROGEN 32 mg/dL (8-26); CALCIUM 6.5 mg/dL (8.5-10.1); CARBON DIOXIDE 24 mmol/L (21-32); CHLORIDE 105 mmol/L (98-107); CREATININE 4.2 mg/dL (0.7-1.3); GFR 14.6; GLUCOSE 147 mg/dL (70-99); SODIUM 140 mmol/L (136-145)
[2017-09-15 06:36] LABS: BASO % 0 % (0-3); EOS % 1 % (0-3); HEMATOCRIT 24.2 % (39.0-53.0); HEMOGLOBIN 8.7 g/dL (13.0-17.5); LYMPH # 1.1 x10^3/uL (1.0-4.8); LYMPH % 11 % (24-48); MEAN CORPUSCULAR HEMOGLOBIN 32 pg (25-35); MEAN CORPUSCULAR HGB CONC 36 g/dL (31-37); MEAN CORPUSCULAR VOLUME 89 fL (79-100); MONO # 1.7 x10^3/uL (0.0-1.1); MONO % 17 % (0-9); NEUT # 7.1 x10^3uL (1.8-7.7); NEUT % 71 % (31-73); PLATELET COUNT 292 x10^3/uL (140-400); RED BLOOD COUNT 2.73 x10^6/uL (4.30-5.70); RED CELL DISTRIBUTION WIDTH 14.4 % (11.5-14.5); WHITE BLOOD COUNT 9.9 x10^3/uL (4.0-11.0)
[2017-09-15 06:37] LABS: POTASSIUM 2.8 mmol/L (3.5-5.1)
[2017-09-15] MEDS: IPRATRPIUM/ALBUTEROL 0.5/2.5MG 3 ML NEBU. NEB ×4 (07:37→20:08)
[2017-09-15] MEDS: BUDESONIDE 0.5 MG/2 ML NEBU. NEB ×2 (07:37→20:08)
[2017-09-15 08:00] LABS: POC GLUCOSE 128 mg/dL (70-99)
[2017-09-15] MEDS: INSULIN LISPRO 300 UNITS/3 ML INSULN.PEN. SQ ×4 (08:00→21:03)
[2017-09-15] MEDS: FUROSEMIDE 40 MG/4 ML VIAL. IVP (08:08)
[2017-09-15] MEDS: methylPREDNISolone SOD SUCC PF 40 MG/ML VIAL. IV ×3 (08:08→21:05)
[2017-09-15] MEDS: busPIRone 5 MG TABLET. PO ×2 (08:08→19:59)
[2017-09-15] MEDS: LACTOBACILLUS RHAMNOSUS GG 1 CAPSULE. PO ×2 (08:08→20:12)
[2017-09-15] MEDS: PANTOPRAZOLE IV PUSH 40 MG VIAL. IVP (08:08)
[2017-09-15] MEDS: carBAMazepine 200 MG TABLET PO ×3 (08:08→19:59)
[2017-09-15 08:26] LABS: POC GLUCOSE 148 mg/dL (70-99)
[2017-09-15 08:34] LABS: PCO2 ABG 29 mmHg (35-46); PH ABG 7.49 (7.35-7.45); PO2 ABG 90 mmHg (65-108)
[2017-09-15 08:35] LABS: BASE EXCESS ABG -1 mmol/L (-3-3); FIO2 ABG 40; HCO3 ABG 22 mmol/L (21-28); SAT O2 ABG 97 % (92-99)
[2017-09-15] MEDS: CHLORHEXIDINE 0.12% 15 ML MOUTHWASH. MM ×2 (09:00→20:03)
[2017-09-15] MEDS: POTASSIUM CHLORIDE 20MEQ 50 ML IV ×2 (11:30→12:30)
[2017-09-15] MEDS ORDERED: IV NORMAL SALINE 1000ML BAG 1,000 ML IV (13:49)
[2017-09-15] MEDS ORDERED: 0.9 % SODIUM CHLORIDE 10 ML DISP.SYRIN. IV ×2 (14:00)
[2017-09-15] MEDS ORDERED: DIALYSIS PATIENT. MC ×2 (14:00)
[2017-09-15] MEDS: AZITHROMYCIN 500 MG in IV NORMAL SALINE 250ML 250 ML IV (14:12)
[2017-09-15] MEDS: HEPARIN PF for SUB-Q USE 5,000 UNIT/0.5 ML VIAL. SQ ×2 (14:14→21:12)
[2017-09-15] MEDS: IV 1/2 NORMAL SALINE 1,000 ML IV (18:17)
[2017-09-15] MEDS: MIRTAZAPINE 15 MG TABLET PO (19:59)
[2017-09-15] MEDS: OLANZapine 5 MG TABLET PO (19:59)
[2017-09-15] MEDS: MORPHINE SULFATE 4 MG/ML DISP.SYRIN. IV (20:00)
[2017-09-15] MEDS: NORTRIPTYLINE 25 MG CAPSULE PO (20:00)
[2017-09-15] MEDS: INSULIN GLARGINE 300 UNITS/3 ML INSULN.PEN. SQ (20:34)
[2017-09-15 20:39] LABS: POC GLUCOSE 322 mg/dL (70-99)
[2017-09-15 20:39] LABS: POC GLUCOSE 160 mg/dL (70-99)
[2017-09-15 20:39] LABS: POC GLUCOSE 288 mg/dL (70-99)
[2017-09-15 20:39] LABS: POC GLUCOSE 187 mg/dL (70-99)
[2017-09-16] MEDS: INSULIN LISPRO 300 UNITS/3 ML INSULN.PEN. SQ ×6 (00:31→21:09)
[2017-09-16 00:34] LABS: POC GLUCOSE 291 mg/dL (70-99)
[2017-09-16] MEDS: MIDAZOLAM 100mg/100ml NS BAG 100 ML IV ×2 (01:17→19:36)
[2017-09-16] MEDS: PIPERACILLIN/TAZOBACTAM 2.25 GM in IV NORMAL SALINE 50ML 50 ML IV ×3 (05:01→23:11)
[2017-09-16] MEDS: methylPREDNISolone SOD SUCC PF 40 MG/ML VIAL. IV ×3 (05:01→21:19)
[2017-09-16] MEDS: HEPARIN PF for SUB-Q USE 5,000 UNIT/0.5 ML VIAL. SQ ×3 (05:05→21:11)
[2017-09-16 05:20] LABS: ADD MAN DIFF? NO
[2017-09-16 05:28] LABS: BASO % 0 % (0-3); EOS % 0 % (0-3); HEMATOCRIT 25.8 % (39.0-53.0); HEMOGLOBIN 9.1 g/dL (13.0-17.5); LYMPH # 0.5 x10^3/uL (1.0-4.8); LYMPH % 5 % (24-48); MEAN CORPUSCULAR HEMOGLOBIN 32 pg (25-35); MEAN CORPUSCULAR HGB CONC 35 g/dL (31-37); MEAN CORPUSCULAR VOLUME 89 fL (79-100); MONO # 0.4 x10^3/uL (0.0-1.1); MONO % 4 % (0-9); NEUT % 90 % (31-73); PLATELET COUNT 335 x10^3/uL (140-400); RED BLOOD COUNT 2.89 x10^6/uL (4.30-5.70); RED CELL DISTRIBUTION WIDTH 14.2 % (11.5-14.5); WHITE BLOOD COUNT 8.9 x10^3/uL (4.0-11.0)
[2017-09-16 05:38] LABS: POC GLUCOSE 291 mg/dL (70-99)
[2017-09-16 05:54] LABS: ANION GAP 15 (6-14); BLOOD UREA NITROGEN 38 mg/dL (8-26); CALCIUM 6.9 mg/dL (8.5-10.1); CARBON DIOXIDE 23 mmol/L (21-32); CHLORIDE 99 mmol/L (98-107); CREATININE 3.8 mg/dL (0.7-1.3); GFR 16.4; GLUCOSE 334 mg/dL (70-99); POTASSIUM 3.5 mmol/L (3.5-5.1); SODIUM 137 mmol/L (136-145)
[2017-09-16] MEDS: BUDESONIDE 0.5 MG/2 ML NEBU. NEB ×2 (07:34→21:09)
[2017-09-16] MEDS: IPRATRPIUM/ALBUTEROL 0.5/2.5MG 3 ML NEBU. NEB ×4 (07:42→21:09)
[2017-09-16] MEDS: IV 1/2 NORMAL SALINE 1,000 ML IV ×2 (08:05→16:15)
[2017-09-16] MEDS: PANTOPRAZOLE IV PUSH 40 MG VIAL. IVP (08:05)
[2017-09-16] MEDS: carBAMazepine 200 MG TABLET PO ×3 (08:06→21:19)
[2017-09-16] MEDS: busPIRone 5 MG TABLET. PO ×2 (08:06→21:18)
[2017-09-16] MEDS: CHLORHEXIDINE 0.12% 15 ML MOUTHWASH. MM ×2 (08:06→21:17)
[2017-09-16] MEDS: LACTOBACILLUS RHAMNOSUS GG 1 CAPSULE. PO ×2 (08:06→21:19)
[2017-09-16] MEDS: FUROSEMIDE 40 MG/4 ML VIAL. IVP (08:06)
[2017-09-16 08:53] LABS: BASE EXCESS ABG -1 mmol/L (-3-3); FIO2 ABG 40; HCO3 ABG 22 mmol/L (21-28); PCO2 ABG 31 mmHg (35-46); PH ABG 7.47 (7.35-7.45); PO2 ABG 77 mmHg (65-108); SAT O2 ABG 95 % (92-99)
[2017-09-16 13:38] LABS: BASE EXCESS ABG 1 mmol/L (-3-3); FIO2 ABG 40; HCO3 ABG 24 mmol/L (21-28); PCO2 ABG 31 mmHg (35-46); PO2 ABG 75 mmHg (65-108); SAT O2 ABG 95 % (92-99)
[2017-09-16] MEDS: AZITHROMYCIN 500 MG in IV NORMAL SALINE 250ML 250 ML IV (14:37)
[2017-09-16 21:06] LABS: POC GLUCOSE 271 mg/dL (70-99)
[2017-09-16 21:06] LABS: POC GLUCOSE 283 mg/dL (70-99)
[2017-09-16 21:06] LABS: POC GLUCOSE 291 mg/dL (70-99)
[2017-09-16] MEDS: INSULIN GLARGINE 300 UNITS/3 ML INSULN.PEN. SQ (21:10)
[2017-09-16] MEDS: MIRTAZAPINE 15 MG TABLET PO (21:18)
[2017-09-16] MEDS: NORTRIPTYLINE 25 MG CAPSULE PO (21:18)
[2017-09-16] MEDS: OLANZapine 5 MG TABLET PO (21:18)
[2017-09-16 21:36] LABS: POC GLUCOSE 235 mg/dL (70-99)
[2017-09-17] MEDS: INSULIN LISPRO 300 UNITS/3 ML INSULN.PEN. SQ ×4 (00:40→19:15)
[2017-09-17] MEDS: PIPERACILLIN/TAZOBACTAM 2.25 GM in IV NORMAL SALINE 50ML 50 ML IV ×3 (06:02→22:21)
[2017-09-17] MEDS: methylPREDNISolone SOD SUCC PF 40 MG/ML VIAL. IV ×2 (06:02→20:14)
[2017-09-17] MEDS: HEPARIN PF for SUB-Q USE 5,000 UNIT/0.5 ML VIAL. SQ ×3 (06:03→22:22)
[2017-09-17 06:20] LABS: ADD MAN DIFF? NO
[2017-09-17 06:42] LABS: BASO % 0 % (0-3); EOS % 0 % (0-3); HEMATOCRIT 24.2 % (39.0-53.0); HEMOGLOBIN 8.7 g/dL (13.0-17.5); LYMPH # 0.5 x10^3/uL (1.0-4.8); LYMPH % 6 % (24-48); MEAN CORPUSCULAR HEMOGLOBIN 32 pg (25-35); MEAN CORPUSCULAR HGB CONC 36 g/dL (31-37); MEAN CORPUSCULAR VOLUME 90 fL (79-100); MONO # 0.5 x10^3/uL (0.0-1.1); MONO % 5 % (0-9); NEUT # 8.3 x10^3uL (1.8-7.7); NEUT % 89 % (31-73); PLATELET COUNT 415 x10^3/uL (140-400); RED CELL DISTRIBUTION WIDTH 14.1 % (11.5-14.5); WHITE BLOOD COUNT 9.3 x10^3/uL (4.0-11.0)
[2017-09-17 06:49] LABS: ANION GAP 14 (6-14); BLOOD UREA NITROGEN 54 mg/dL (8-26); CALCIUM 6.9 mg/dL (8.5-10.1); CARBON DIOXIDE 23 mmol/L (21-32); CHLORIDE 100 mmol/L (98-107); CREATININE 4.6 mg/dL (0.7-1.3); GFR 13.1; GLUCOSE 363 mg/dL (70-99); SODIUM 137 mmol/L (136-145)
[2017-09-17 06:54] LABS: POTASSIUM 2.9 mmol/L (3.5-5.1)
[2017-09-17] MEDS: BUDESONIDE 0.5 MG/2 ML NEBU. NEB ×2 (07:13→19:36)
[2017-09-17] MEDS: IPRATRPIUM/ALBUTEROL 0.5/2.5MG 3 ML NEBU. NEB ×4 (07:13→19:36)
[2017-09-17 07:57] LABS: BASE EXCESS ABG -1 mmol/L (-3-3); FIO2 ABG 40; HCO3 ABG 22 mmol/L (21-28); PCO2 ABG 30 mmHg (35-46); PH ABG 7.48 (7.35-7.45); PO2 ABG 79 mmHg (65-108); SAT O2 ABG 95 % (92-99)
[2017-09-17] MEDS: POTASSIUM CHLORIDE 20 MEQ/15 ML ORAL LIQUID. NG (08:31)
[2017-09-17] MEDS: PANTOPRAZOLE IV PUSH 40 MG VIAL. IVP (08:40)
[2017-09-17] MEDS ORDERED: diphenhydrAMINE 50 MG/ML VIAL IV ×2 (08:45)
[2017-09-17] MEDS ORDERED: DIALYSIS PATIENT. MC (08:45)
[2017-09-17] MEDS: FUROSEMIDE 40 MG/4 ML VIAL. IVP (09:00)
[2017-09-17] MEDS: CHLORHEXIDINE 0.12% 15 ML MOUTHWASH. MM (09:40)
[2017-09-17] MEDS: busPIRone 5 MG TABLET. PO ×2 (11:53→20:16)
[2017-09-17] MEDS: LACTOBACILLUS RHAMNOSUS GG 1 CAPSULE. PO ×2 (11:53→20:13)
[2017-09-17] MEDS: carBAMazepine 200 MG TABLET PO ×3 (11:53→20:13)
[2017-09-17 13:28] LABS: BASE EXCESS ABG 5 mmol/L (-3-3); HCO3 ABG 27 mmol/L (21-28); PCO2 ABG 30 mmHg (35-46); PO2 ABG 70 mmHg (65-108); SAT O2 ABG 95 % (92-99)
[2017-09-17 13:29] LABS: FIO2 ABG 40; PH ABG 7.56 (7.35-7.45)
[2017-09-17] MEDS: NORTRIPTYLINE 25 MG CAPSULE PO (20:13)
[2017-09-17] MEDS: OLANZapine 5 MG TABLET PO (20:13)
[2017-09-17] MEDS: MIRTAZAPINE 15 MG TABLET PO (20:13)
[2017-09-17] MEDS: INSULIN GLARGINE 300 UNITS/3 ML INSULN.PEN. SQ (20:20)
[2017-09-18] MEDS: INSULIN LISPRO 300 UNITS/3 ML INSULN.PEN. SQ ×5 (00:06→21:39)
[2017-09-18 03:16] LABS: POC GLUCOSE 143 mg/dL (70-99)
[2017-09-18 03:16] LABS: POC GLUCOSE 91 mg/dL (70-99)
[2017-09-18 03:16] LABS: POC GLUCOSE 111 mg/dL (70-99)
[2017-09-18 03:16] LABS: POC GLUCOSE 123 mg/dL (70-99)
[2017-09-18 03:16] LABS: POC GLUCOSE 115 mg/dL (70-99)
[2017-09-18 03:16] LABS: POC GLUCOSE 109 mg/dL (70-99)
[2017-09-18 03:16] LABS: POC GLUCOSE 93 mg/dL (70-99)
[2017-09-18 03:16] LABS: POC GLUCOSE 167 mg/dL (70-99)
[2017-09-18 03:16] LABS: POC GLUCOSE 251 mg/dL (70-99)
[2017-09-18 03:16] LABS: POC GLUCOSE 183 mg/dL (70-99)
[2017-09-18 03:16] LABS: POC GLUCOSE 104 mg/dL (70-99)
[2017-09-18 03:17] LABS: POC GLUCOSE 362 mg/dL (70-99)
[2017-09-18 03:17] LABS: POC GLUCOSE 133 mg/dL (70-99)
[2017-09-18 03:17] LABS: POC GLUCOSE 162 mg/dL (70-99)
[2017-09-18 03:17] LABS: POC GLUCOSE 125 mg/dL (70-99)
[2017-09-18 03:17] LABS: POC GLUCOSE 170 mg/dL (70-99)
[2017-09-18 03:17] LABS: POC GLUCOSE 172 mg/dL (70-99)
[2017-09-18 03:17] LABS: POC GLUCOSE 329 mg/dL (70-99)
[2017-09-18 03:17] LABS: POC GLUCOSE 313 mg/dL (70-99)
[2017-09-18 03:17] LABS: POC GLUCOSE 127 mg/dL (70-99)
[2017-09-18 03:17] LABS: POC GLUCOSE 130 mg/dL (70-99)
[2017-09-18 03:17] LABS: POC GLUCOSE 119 mg/dL (70-99)
[2017-09-18 03:17] LABS: POC GLUCOSE 115 mg/dL (70-99)
[2017-09-18 03:17] LABS: POC GLUCOSE 141 mg/dL (70-99)
[2017-09-18 03:17] LABS: POC GLUCOSE 121 mg/dL (70-99)
[2017-09-18 03:17] LABS: POC GLUCOSE 120 mg/dL (70-99)
[2017-09-18 03:17] LABS: POC GLUCOSE 118 mg/dL (70-99)
[2017-09-18 03:17] LABS: POC GLUCOSE 115 mg/dL (70-99)
[2017-09-18 03:17] LABS: POC GLUCOSE 121 mg/dL (70-99)
[2017-09-18 03:17] LABS: POC GLUCOSE 166 mg/dL (70-99)
[2017-09-18 03:17] LABS: POC GLUCOSE 119 mg/dL (70-99)
[2017-09-18 03:17] LABS: POC GLUCOSE 129 mg/dL (70-99)
[2017-09-18 03:17] LABS: POC GLUCOSE 141 mg/dL (70-99)
[2017-09-18 03:17] LABS: POC GLUCOSE 318 mg/dL (70-99)
[2017-09-18 03:17] LABS: POC GLUCOSE 269 mg/dL (70-99)
[2017-09-18 03:17] LABS: POC GLUCOSE 110 mg/dL (70-99)
[2017-09-18] MEDS: PIPERACILLIN/TAZOBACTAM 2.25 GM in IV NORMAL SALINE 50ML 50 ML IV ×3 (05:39→21:40)
[2017-09-18] MEDS: HEPARIN PF for SUB-Q USE 5,000 UNIT/0.5 ML VIAL. SQ ×3 (05:39→21:40)
[2017-09-18 06:11] LABS: BASO % 0 % (0-3); EOS % 0 % (0-3); HEMATOCRIT 25.1 % (39.0-53.0); HEMOGLOBIN 8.7 g/dL (13.0-17.5); LYMPH # 0.6 x10^3/uL (1.0-4.8); LYMPH % 5 % (24-48); MEAN CORPUSCULAR HEMOGLOBIN 31 pg (25-35); MEAN CORPUSCULAR HGB CONC 35 g/dL (31-37); MEAN CORPUSCULAR VOLUME 90 fL (79-100); MONO % 8 % (0-9); NEUT % 87 % (31-73); PLATELET COUNT 457 x10^3/uL (140-400); WHITE BLOOD COUNT 12.6 x10^3/uL (4.0-11.0)
[2017-09-18 06:17] LABS: ANION GAP 10 (6-14); BLOOD UREA NITROGEN 46 mg/dL (8-26); CALCIUM 7.4 mg/dL (8.5-10.1); CARBON DIOXIDE 27 mmol/L (21-32); CHLORIDE 99 mmol/L (98-107); CREATININE 3.4 mg/dL (0.7-1.3); GFR 18.6; GLUCOSE 381 mg/dL (70-99); SODIUM 136 mmol/L (136-145)
[2017-09-18 06:18] LABS: ADD MAN DIFF? YES
[2017-09-18 07:56] LABS: % LYMPHS 16 % (24-48); % MONOS 6 % (0-10); % SEGS 78 % (35-66); PLT ESTIMATE INCREASED (ADEQUATE)
[2017-09-18] MEDS: busPIRone 5 MG TABLET. PO ×2 (07:59→20:46)
[2017-09-18] MEDS: carBAMazepine 200 MG TABLET PO ×3 (07:59→20:46)
[2017-09-18] MEDS: PANTOPRAZOLE IV PUSH 40 MG VIAL. IVP (07:59)
[2017-09-18] MEDS: methylPREDNISolone SOD SUCC PF 40 MG/ML VIAL. IV (07:59)
[2017-09-18] MEDS: LACTOBACILLUS RHAMNOSUS GG 1 CAPSULE. PO ×2 (08:00→20:46)
[2017-09-18] MEDS: IPRATRPIUM/ALBUTEROL 0.5/2.5MG 3 ML NEBU. NEB ×4 (08:10→20:10)
[2017-09-18] MEDS: BUDESONIDE 0.5 MG/2 ML NEBU. NEB ×2 (08:11→20:10)
[2017-09-18] MEDS: POTASSIUM CHLORIDE 20 MEQ/15 ML ORAL LIQUID. PEG (12:03)
[2017-09-18 12:23] LABS: MAGNESIUM 2.2 mg/dL (1.8-2.4)
[2017-09-18] MEDS: MIRTAZAPINE 15 MG TABLET PO (20:46)
[2017-09-18] MEDS: NORTRIPTYLINE 25 MG CAPSULE PO (20:46)
[2017-09-18] MEDS: OLANZapine 5 MG TABLET PO (20:47)
[2017-09-18] MEDS: INSULIN GLARGINE 300 UNITS/3 ML INSULN.PEN. SQ (21:37)
[2017-09-19] MEDS: HEPARIN PF for SUB-Q USE 5,000 UNIT/0.5 ML VIAL. SQ ×3 (05:20→22:07)
[2017-09-19] MEDS: PIPERACILLIN/TAZOBACTAM 2.25 GM in IV NORMAL SALINE 50ML 50 ML IV ×3 (05:21→21:59)
[2017-09-19] MEDS: INSULIN LISPRO 300 UNITS/3 ML INSULN.PEN. SQ ×3 (05:22→18:28)
[2017-09-19 05:32] LABS: ADD MAN DIFF? NO
[2017-09-19 05:37] LABS: BASO % 0 % (0-3); EOS % 0 % (0-3); HEMOGLOBIN 9.3 g/dL (13.0-17.5); LYMPH # 1.2 x10^3/uL (1.0-4.8); LYMPH % 8 % (24-48); MEAN CORPUSCULAR HEMOGLOBIN 31 pg (25-35); MEAN CORPUSCULAR HGB CONC 34 g/dL (31-37); MEAN CORPUSCULAR VOLUME 90 fL (79-100); MONO # 0.8 x10^3/uL (0.0-1.1); MONO % 5 % (0-9); NEUT % 87 % (31-73); PLATELET COUNT 360 x10^3/uL (140-400); RED BLOOD COUNT 3.01 x10^6/uL (4.30-5.70); RED CELL DISTRIBUTION WIDTH 13.7 % (11.5-14.5)
[2017-09-19 05:49] LABS: ANION GAP 11 (6-14); BLOOD UREA NITROGEN 47 mg/dL (8-26); CALCIUM 7.1 mg/dL (8.5-10.1); CARBON DIOXIDE 27 mmol/L (21-32); CHLORIDE 102 mmol/L (98-107); CREATININE 4.2 mg/dL (0.7-1.3); GFR 14.6; GLUCOSE 143 mg/dL (70-99); SODIUM 140 mmol/L (136-145)
[2017-09-19 05:53] LABS: POTASSIUM 2.5 mmol/L (3.5-5.1)
[2017-09-19] MEDS: POTASSIUM CHLORIDE 20 MEQ TABLET.ER. PO ×3 (06:10→13:06)
[2017-09-19] MEDS: PANTOPRAZOLE IV PUSH 40 MG VIAL. IVP (08:06)
[2017-09-19] MEDS: IPRATRPIUM/ALBUTEROL 0.5/2.5MG 3 ML NEBU. NEB ×4 (08:52→20:26)
[2017-09-19] MEDS: BUDESONIDE 0.5 MG/2 ML NEBU. NEB ×2 (08:52→20:26)
[2017-09-19] MEDS: methylPREDNISolone SOD SUCC PF 40 MG/ML VIAL. IV (09:12)
[2017-09-19] MEDS: carBAMazepine 200 MG TABLET PO ×3 (09:14→20:42)
[2017-09-19] MEDS: busPIRone 5 MG TABLET. PO ×2 (09:14→20:43)
[2017-09-19] MEDS: LACTOBACILLUS RHAMNOSUS GG 1 CAPSULE. PO ×2 (09:15→20:42)
[2017-09-19 12:04] LABS: ALBUMIN 1.7 g/dL (3.4-5.0); ALBUMIN/GLOBULIN RATIO 0.5 (1.0-1.7); ALK PHOS 69 U/L (46-116); ALT (SGPT) 28 U/L (16-63); ANION GAP 11 (6-14); AST (SGOT) 35 U/L (15-37); BLOOD UREA NITROGEN 47 mg/dL (8-26); BUN/CREATININE RATIO 11 (6-20); CARBON DIOXIDE 26 mmol/L (21-32); CHLORIDE 102 mmol/L (98-107); CREATININE 4.1 mg/dL (0.7-1.3); GLUCOSE 176 mg/dL (70-99); SODIUM 139 mmol/L (136-145); TOTAL BILIRUBIN 0.3 mg/dL (0.2-1.0); TOTAL PROTEIN 5.3 g/dL (6.4-8.2)
[2017-09-19 12:06] LABS: RETIC COUNT 1.4 % (0.5-2.5)
[2017-09-19 12:10] LABS: POTASSIUM 2.8 mmol/L (3.5-5.1)
[2017-09-19 15:27] LABS: % SAT IRON 12 % (15-34); IRON,SERUM 20 ug/dL (65-175)
[2017-09-19] MEDS: NORTRIPTYLINE 25 MG CAPSULE PO (20:42)
[2017-09-19] MEDS: MIRTAZAPINE 15 MG TABLET PO (20:42)
[2017-09-19] MEDS: OLANZapine 5 MG TABLET PO (20:42)
[2017-09-19 21:21] LABS: POC GLUCOSE 189 mg/dL (70-99)
[2017-09-19 21:21] LABS: POC GLUCOSE 227 mg/dL (70-99)
[2017-09-19 21:23] LABS: FECAL OB PT POSITIVE (NEG); NEG OBC FOB NEG; POS OBC FOB POS
[2017-09-19] MEDS: INSULIN GLARGINE 300 UNITS/3 ML INSULN.PEN. SQ (22:07)
[2017-09-20] MEDS: INSULIN LISPRO 300 UNITS/3 ML INSULN.PEN. SQ ×4 (00:52→18:00)
[2017-09-20] MEDS: PIPERACILLIN/TAZOBACTAM 2.25 GM in IV NORMAL SALINE 50ML 50 ML IV ×3 (05:55→21:06)
[2017-09-20] MEDS: HEPARIN PF for SUB-Q USE 5,000 UNIT/0.5 ML VIAL. SQ (06:08)
[2017-09-20 06:12] LABS: ADD MAN DIFF? NO
[2017-09-20 06:29] LABS: ALBUMIN 1.6 g/dL (3.4-5.0); ALBUMIN/GLOBULIN RATIO 0.4 (1.0-1.7); ALK PHOS 66 U/L (46-116); ALT (SGPT) 24 U/L (16-63); ANION GAP 9 (6-14); AST (SGOT) 28 U/L (15-37); BLOOD UREA NITROGEN 34 mg/dL (8-26); BUN/CREATININE RATIO 10 (6-20); CALCIUM 6.8 mg/dL (8.5-10.1); CARBON DIOXIDE 28 mmol/L (21-32); CHLORIDE 103 mmol/L (98-107); CREATININE 3.3 mg/dL (0.7-1.3); GFR 19.3; GLUCOSE 229 mg/dL (70-99); POTASSIUM 3.2 mmol/L (3.5-5.1); SODIUM 140 mmol/L (136-145); TOTAL BILIRUBIN 0.2 mg/dL (0.2-1.0); TOTAL PROTEIN 5.3 g/dL (6.4-8.2)
[2017-09-20 06:32] LABS: BASO % 0 % (0-3); EOS % 0 % (0-3); HEMATOCRIT 24.9 % (39.0-53.0); HEMOGLOBIN 8.5 g/dL (13.0-17.5); LYMPH # 1.1 x10^3/uL (1.0-4.8); LYMPH % 7 % (24-48); MEAN CORPUSCULAR HEMOGLOBIN 31 pg (25-35); MEAN CORPUSCULAR HGB CONC 34 g/dL (31-37); MEAN CORPUSCULAR VOLUME 91 fL (79-100); MONO # 0.8 x10^3/uL (0.0-1.1); MONO % 5 % (0-9); NEUT # 14.7 x10^3uL (1.8-7.7); NEUT % 89 % (31-73); PLATELET COUNT 343 x10^3/uL (140-400); RED BLOOD COUNT 2.74 x10^6/uL (4.30-5.70); RED CELL DISTRIBUTION WIDTH 13.9 % (11.5-14.5); WHITE BLOOD COUNT 16.6 x10^3/uL (4.0-11.0)
[2017-09-20] MEDS: IPRATRPIUM/ALBUTEROL 0.5/2.5MG 3 ML NEBU. NEB ×4 (08:01→19:45)
[2017-09-20] MEDS: BUDESONIDE 0.5 MG/2 ML NEBU. NEB ×2 (08:01→19:45)
[2017-09-20] MEDS: methylPREDNISolone SOD SUCC PF 40 MG/ML VIAL. IV (09:19)
[2017-09-20] MEDS: carBAMazepine 200 MG TABLET PO ×3 (09:19→21:07)
[2017-09-20] MEDS: busPIRone 5 MG TABLET. PO ×2 (09:19→21:07)
[2017-09-20] MEDS: LACTOBACILLUS RHAMNOSUS GG 1 CAPSULE. PO ×2 (09:19→21:07)
[2017-09-20] MEDS: PANTOPRAZOLE 40 MG TABLET.DR. PO (09:19)
[2017-09-20 12:12] LABS: POC GLUCOSE 209 mg/dL (70-99)
[2017-09-20 12:12] LABS: POC GLUCOSE 178 mg/dL (70-99)
[2017-09-20 14:30] LABS: C DIFF BY PCR Negative (Negative)
[2017-09-20] MEDS: MIRTAZAPINE 15 MG TABLET PO (21:07)
[2017-09-20] MEDS: OLANZapine 5 MG TABLET PO (21:07)
[2017-09-20] MEDS: NORTRIPTYLINE 25 MG CAPSULE PO (21:07)
[2017-09-20 21:40] LABS: POC GLUCOSE 229 mg/dL (70-99)
[2017-09-20] MEDS: INSULIN GLARGINE 300 UNITS/3 ML INSULN.PEN. SQ (22:03)
[2017-09-21] MEDS: INSULIN LISPRO 300 UNITS/3 ML INSULN.PEN. SQ ×4 (00:15→16:30)
[2017-09-21 04:13] LABS: POC GLUCOSE 271 mg/dL (70-99)
[2017-09-21 04:13] LABS: POC GLUCOSE 376 mg/dL (70-99)
[2017-09-21 04:13] LABS: POC GLUCOSE 191 mg/dL (70-99)
[2017-09-21 04:13] LABS: POC GLUCOSE 259 mg/dL (70-99)
[2017-09-21 04:13] LABS: POC GLUCOSE 345 mg/dL (70-99)
[2017-09-21 04:13] LABS: POC GLUCOSE 130 mg/dL (70-99)
[2017-09-21 04:55] LABS: POC GLUCOSE 286 mg/dL (70-99)
[2017-09-21] MEDS: PIPERACILLIN/TAZOBACTAM 2.25 GM in IV NORMAL SALINE 50ML 50 ML IV ×3 (06:11→22:35)
[2017-09-21 06:26] LABS: ADD MAN DIFF? NO
[2017-09-21 06:39] LABS: BASO % 0 % (0-3); EOS # 0.1 x10^3/uL (0.0-0.7); EOS % 1 % (0-3); HEMATOCRIT 24.4 % (39.0-53.0); HEMOGLOBIN 8.4 g/dL (13.0-17.5); LYMPH # 1.2 x10^3/uL (1.0-4.8); LYMPH % 9 % (24-48); MEAN CORPUSCULAR HEMOGLOBIN 31 pg (25-35); MEAN CORPUSCULAR HGB CONC 34 g/dL (31-37); MEAN CORPUSCULAR VOLUME 90 fL (79-100); MONO # 0.7 x10^3/uL (0.0-1.1); MONO % 6 % (0-9); NEUT # 10.7 x10^3uL (1.8-7.7); NEUT % 84 % (31-73); PLATELET COUNT 307 x10^3/uL (140-400); RED BLOOD COUNT 2.71 x10^6/uL (4.30-5.70); RED CELL DISTRIBUTION WIDTH 14.1 % (11.5-14.5); WHITE BLOOD COUNT 12.7 x10^3/uL (4.0-11.0)
[2017-09-21 06:44] LABS: ALBUMIN 1.8 g/dL (3.4-5.0); ANION GAP 9 (6-14); BLOOD UREA NITROGEN 41 mg/dL (8-26); CALCIUM 7.4 mg/dL (8.5-10.1); CARBON DIOXIDE 28 mmol/L (21-32); CHLORIDE 102 mmol/L (98-107); CREATININE 3.6 mg/dL (0.7-1.3); GFR 17.4; GLUCOSE 160 mg/dL (70-99); PHOSPHORUS 4.5 mg/dL (2.6-4.7); SODIUM 139 mmol/L (136-145)
[2017-09-21 07:19] LABS: POC GLUCOSE 133 mg/dL (70-99)
[2017-09-21] MEDS: PANTOPRAZOLE 40 MG TABLET.DR. PO (07:30)
[2017-09-21] MEDS: methylPREDNISolone SOD SUCC PF 40 MG/ML VIAL. IV (07:40)
[2017-09-21] MEDS: busPIRone 5 MG TABLET. PO ×2 (07:41→22:33)
[2017-09-21] MEDS: LACTOBACILLUS RHAMNOSUS GG 1 CAPSULE. PO ×2 (07:41→22:34)
[2017-09-21] MEDS: carBAMazepine 200 MG TABLET PO ×3 (07:41→22:34)
[2017-09-21] MEDS: IPRATRPIUM/ALBUTEROL 0.5/2.5MG 3 ML NEBU. NEB ×4 (07:42→18:07)
[2017-09-21] MEDS: BUDESONIDE 0.5 MG/2 ML NEBU. NEB ×2 (07:42→18:07)
[2017-09-21] MEDS ORDERED: IV NORMAL SALINE 1000ML BAG 1,000 ML IV (08:00)
[2017-09-21] MEDS ORDERED: 0.9 % SODIUM CHLORIDE 10 ML DISP.SYRIN. IV ×2 (08:00)
[2017-09-21] MEDS ORDERED: DIALYSIS PATIENT. MC ×2 (09:30)
[2017-09-21 12:21] LABS: POC GLUCOSE 112 mg/dL (70-99)
[2017-09-21 16:28] LABS: POC GLUCOSE 205 mg/dL (70-99)
[2017-09-21] MEDS: ONDANSETRON PF 4 MG/2 ML VIAL. IV (20:29)
[2017-09-21] MEDS: INSULIN GLARGINE 300 UNITS/3 ML INSULN.PEN. SQ (21:00)
[2017-09-21 21:14] LABS: POC GLUCOSE 119 mg/dL (70-99)
[2017-09-21] MEDS: MIRTAZAPINE 15 MG TABLET PO (22:34)
[2017-09-21] MEDS: OLANZapine 5 MG TABLET PO (22:34)
[2017-09-21] MEDS: NORTRIPTYLINE 25 MG CAPSULE PO (22:34)
[2017-09-22] MEDS: INSULIN LISPRO 300 UNITS/3 ML INSULN.PEN. SQ ×4 (00:05→17:35)
[2017-09-22] MEDS: ONDANSETRON PF 4 MG/2 ML VIAL. IV (04:39)
[2017-09-22] MEDS: BUDESONIDE 0.5 MG/2 ML NEBU. NEB ×2 (05:48→20:03)
[2017-09-22] MEDS: IPRATRPIUM/ALBUTEROL 0.5/2.5MG 3 ML NEBU. NEB ×4 (05:48→20:03)
[2017-09-22] MEDS: PIPERACILLIN/TAZOBACTAM 2.25 GM in IV NORMAL SALINE 50ML 50 ML IV ×3 (05:59→20:40)
[2017-09-22 07:47] LABS: POC GLUCOSE 154 mg/dL (70-99)
[2017-09-22] MEDS: LACTOBACILLUS RHAMNOSUS GG 1 CAPSULE. PO ×2 (08:28→20:39)
[2017-09-22] MEDS: PANTOPRAZOLE 40 MG TABLET.DR. PO (08:29)
[2017-09-22] MEDS: carBAMazepine 200 MG TABLET PO ×3 (08:29→20:38)
[2017-09-22] MEDS: busPIRone 5 MG TABLET. PO ×2 (08:29→20:39)
[2017-09-22] MEDS: methylPREDNISolone SOD SUCC PF 40 MG/ML VIAL. IV (08:30)
[2017-09-22 12:15] LABS: POC GLUCOSE 169 mg/dL (70-99)
[2017-09-22 16:47] LABS: POC GLUCOSE 267 mg/dL (70-99)
[2017-09-22 20:05] LABS: POC GLUCOSE 213 mg/dL (70-99)
[2017-09-22] MEDS: MIRTAZAPINE 15 MG TABLET PO (20:39)
[2017-09-22] MEDS: OLANZapine 5 MG TABLET PO (20:39)
[2017-09-22] MEDS: NORTRIPTYLINE 25 MG CAPSULE PO (20:39)
[2017-09-22] MEDS: INSULIN GLARGINE 300 UNITS/3 ML INSULN.PEN. SQ (20:45)
[2017-09-23] MEDS: INSULIN LISPRO 300 UNITS/3 ML INSULN.PEN. SQ ×4 (00:13→17:37)
[2017-09-23] MEDS: BUDESONIDE 0.5 MG/2 ML NEBU. NEB ×2 (05:55→19:27)
[2017-09-23] MEDS: IPRATRPIUM/ALBUTEROL 0.5/2.5MG 3 ML NEBU. NEB ×4 (05:55→19:27)
[2017-09-23] MEDS: PIPERACILLIN/TAZOBACTAM 2.25 GM in IV NORMAL SALINE 50ML 50 ML IV ×3 (06:14→22:00)
[2017-09-23 07:26] LABS: POC GLUCOSE 154 mg/dL (70-99)
[2017-09-23] MEDS: carBAMazepine 200 MG TABLET PO ×3 (09:00→21:38)
[2017-09-23] MEDS: methylPREDNISolone SOD SUCC PF 40 MG/ML VIAL. IV (09:16)
[2017-09-23 11:34] LABS: POC GLUCOSE 214 mg/dL (70-99)
[2017-09-23] MEDS ORDERED: 0.9 % SODIUM CHLORIDE 10 ML DISP.SYRIN. IV (12:45)
[2017-09-23] MEDS: busPIRone 5 MG TABLET. PO ×2 (13:11→21:38)
[2017-09-23] MEDS: LACTOBACILLUS RHAMNOSUS GG 1 CAPSULE. PO ×2 (13:11→21:38)
[2017-09-23] MEDS: PANTOPRAZOLE 40 MG TABLET.DR. PO (13:11)
[2017-09-23] MEDS ORDERED: BISACODYL 5 MG TABLET.DR. PO (14:00)
[2017-09-23] MEDS ORDERED: PEG 3350/NA SULF,BICARB,CL/KCL 4,000 ML SOLUTION. PO (16:00)
[2017-09-23] MEDS ORDERED: POLYETHYLENE GLYCOL 3350 238 GM POWDER PO (16:00)
[2017-09-23] MEDS: ONDANSETRON PF 4 MG/2 ML VIAL. IV (16:19)
[2017-09-23] MEDS: PEG 3350/NA SULF,BICARB,CL/KCL 4,000 ML SOLUTION. PO (16:20)
[2017-09-23 17:18] LABS: POC GLUCOSE 294 mg/dL (70-99)
[2017-09-23] MEDS ORDERED: PHENYLEPH/MINERAL OIL/PETROLAT RECTAL OINTMENT 28GM TUBE. RC (18:15)
[2017-09-23 19:03] LABS: ADD MAN DIFF? NO
[2017-09-23 19:05] LABS: BASO % 0 % (0-3); EOS % 0 % (0-3); HEMATOCRIT 27.3 % (39.0-53.0); HEMOGLOBIN 9.8 g/dL (13.0-17.5); LYMPH # 0.5 x10^3/uL (1.0-4.8); LYMPH % 4 % (24-48); MEAN CORPUSCULAR HEMOGLOBIN 32 pg (25-35); MEAN CORPUSCULAR HGB CONC 36 g/dL (31-37); MEAN CORPUSCULAR VOLUME 89 fL (79-100); MONO # 0.7 x10^3/uL (0.0-1.1); MONO % 6 % (0-9); NEUT # 10.2 x10^3uL (1.8-7.7); NEUT % 90 % (31-73); PLATELET COUNT 288 x10^3/uL (140-400); RED BLOOD COUNT 3.05 x10^6/uL (4.30-5.70); RED CELL DISTRIBUTION WIDTH 13.8 % (11.5-14.5); WHITE BLOOD COUNT 11.4 x10^3/uL (4.0-11.0)
[2017-09-23 19:22] LABS: ALBUMIN 2.1 g/dL (3.4-5.0); ALBUMIN/GLOBULIN RATIO 0.5 (1.0-1.7); ALK PHOS 101 U/L (46-116); ALT (SGPT) 141 U/L (16-63); ANION GAP 13 (6-14); AST (SGOT) 88 U/L (15-37); BLOOD UREA NITROGEN 32 mg/dL (8-26); BUN/CREATININE RATIO 12 (6-20); CARBON DIOXIDE 26 mmol/L (21-32); CHLORIDE 99 mmol/L (98-107); CREATININE 2.7 mg/dL (0.7-1.3); GFR 24.3; GLUCOSE 163 mg/dL (70-99); POTASSIUM 3.4 mmol/L (3.5-5.1); SODIUM 138 mmol/L (136-145); TOTAL BILIRUBIN 0.5 mg/dL (0.2-1.0); TOTAL PROTEIN 6.6 g/dL (6.4-8.2)
[2017-09-23 20:40] LABS: POC GLUCOSE 136 mg/dL (70-99)
[2017-09-23] MEDS: NORTRIPTYLINE 25 MG CAPSULE PO (21:38)
[2017-09-23] MEDS: OLANZapine 5 MG TABLET PO (21:38)
[2017-09-23] MEDS: MIRTAZAPINE 15 MG TABLET PO (21:39)
[2017-09-23] MEDS: INSULIN GLARGINE 300 UNITS/3 ML INSULN.PEN. SQ (21:42)
[2017-09-24 00:06] LABS: POC GLUCOSE 125 mg/dL (70-99)
[2017-09-24] MEDS: PIPERACILLIN/TAZOBACTAM 2.25 GM in IV NORMAL SALINE 50ML 50 ML IV (05:49)
[2017-09-24] MEDS: INSULIN LISPRO 300 UNITS/3 ML INSULN.PEN. SQ ×4 (06:00→17:32)
[2017-09-24] MEDS ORDERED: LIDOCAINE 2% PF Vial for OR 5 ML VIAL. (06:57)
[2017-09-24] MEDS ORDERED: PROPOFOL 40 ML IV (06:57)
[2017-09-24] MEDS: LACTOBACILLUS RHAMNOSUS GG 1 CAPSULE. PO ×3 (07:08→21:22)
[2017-09-24] MEDS: methylPREDNISolone SOD SUCC PF 40 MG/ML VIAL. IV ×2 (07:08→09:48)
[2017-09-24] MEDS: PANTOPRAZOLE 40 MG TABLET.DR. PO ×2 (07:08→17:27)
[2017-09-24] MEDS: busPIRone 5 MG TABLET. PO ×3 (07:08→21:21)
[2017-09-24] MEDS: carBAMazepine 200 MG TABLET PO ×4 (07:09→21:22)
[2017-09-24] MEDS ORDERED: MORPHINE SULFATE 4 MG/ML DISP.SYRIN. IV (07:15)
[2017-09-24] MEDS ORDERED: ONDANSETRON PF 4 MG/2 ML VIAL. IV (07:15)
[2017-09-24] MEDS ORDERED: fentaNYL PF VIAL 100 MCG/2 ML VIAL IV ×2 (07:15)
[2017-09-24] MEDS ORDERED: PROCHLORPERAZINE 10 MG/2 ML VIAL. IV (07:15)
[2017-09-24] MEDS ORDERED: LIDOCAINE 1% PF 2 ML VIAL. ID (07:15)
[2017-09-24] MEDS: IV RINGERS,LACTATED 1000ML 1,000 ML IV (07:15)
[2017-09-24] MEDS: IPRATRPIUM/ALBUTEROL 0.5/2.5MG 3 ML NEBU. NEB ×4 (07:22→20:24)
[2017-09-24] MEDS: BUDESONIDE 0.5 MG/2 ML NEBU. NEB ×3 (07:23→20:24)
[2017-09-24] MEDS ORDERED: PROPOFOL 20 ML IV (08:06)
[2017-09-24 09:01] LABS: ANION GAP 14 (6-14); BLOOD UREA NITROGEN 26 mg/dL (8-26); CALCIUM 6.6 mg/dL (8.5-10.1); CARBON DIOXIDE 25 mmol/L (21-32); CHLORIDE 103 mmol/L (98-107); CREATININE 2.3 mg/dL (0.7-1.3); GFR 29.2; GLUCOSE 90 mg/dL (70-99); SODIUM 142 mmol/L (136-145)
[2017-09-24 09:11] LABS: POTASSIUM 2.4 mmol/L (3.5-5.1)
[2017-09-24] MEDS: POTASSIUM CHLORIDE 20 MEQ TABLET.ER. PO ×2 (09:47→10:55)
[2017-09-24] MEDS: CALCIUM POLYCARBOPHIL 625 MG TABLET PO (09:47)
[2017-09-24] MEDS: SUCRALFATE 1 GM TABLET. PO ×2 (09:48→21:22)
[2017-09-24 11:53] LABS: POC GLUCOSE 208 mg/dL (70-99)
[2017-09-24 13:59] LABS: POTASSIUM 3.2 mmol/L (3.5-5.1)
[2017-09-24 21:00] LABS: POC GLUCOSE 206 mg/dL (70-99)
[2017-09-24 21:15] LABS: POC GLUCOSE 179 mg/dL (70-99)
[2017-09-24] MEDS: MIRTAZAPINE 15 MG TABLET PO (21:21)
[2017-09-24] MEDS: NORTRIPTYLINE 25 MG CAPSULE PO (21:22)
[2017-09-24] MEDS: OLANZapine 5 MG TABLET PO (21:22)
[2017-09-24] MEDS: INSULIN GLARGINE 300 UNITS/3 ML INSULN.PEN. SQ (21:30)
[2017-09-25 05:38] LABS: ADD MAN DIFF? NO
[2017-09-25 05:40] LABS: BASO # 0.1 x10^3/uL (0.0-0.2); BASO % 1 % (0-3); EOS # 0.1 x10^3/uL (0.0-0.7); EOS % 1 % (0-3); HEMOGLOBIN 8.1 g/dL (13.0-17.5); LYMPH # 1.5 x10^3/uL (1.0-4.8); LYMPH % 15 % (24-48); MEAN CORPUSCULAR HEMOGLOBIN 32 pg (25-35); MEAN CORPUSCULAR HGB CONC 35 g/dL (31-37); MEAN CORPUSCULAR VOLUME 90 fL (79-100); MONO # 0.9 x10^3/uL (0.0-1.1); MONO % 9 % (0-9); NEUT # 7.6 x10^3uL (1.8-7.7); NEUT % 75 % (31-73); PLATELET COUNT 262 x10^3/uL (140-400); RED BLOOD COUNT 2.55 x10^6/uL (4.30-5.70); RED CELL DISTRIBUTION WIDTH 13.8 % (11.5-14.5); WHITE BLOOD COUNT 10.2 x10^3/uL (4.0-11.0)
[2017-09-25 06:00] LABS: ANION GAP 9 (6-14); BLOOD UREA NITROGEN 23 mg/dL (8-26); CALCIUM 7.1 mg/dL (8.5-10.1); CARBON DIOXIDE 26 mmol/L (21-32); CHLORIDE 105 mmol/L (98-107); CREATININE 2.1 mg/dL (0.7-1.3); GFR 32.5; GLUCOSE 82 mg/dL (70-99); SODIUM 140 mmol/L (136-145)
[2017-09-25 06:03] LABS: POTASSIUM 2.7 mmol/L (3.5-5.1)
[2017-09-25] MEDS: BUDESONIDE 0.5 MG/2 ML NEBU. NEB (07:03)
[2017-09-25] MEDS: IPRATRPIUM/ALBUTEROL 0.5/2.5MG 3 ML NEBU. NEB ×4 (07:03→20:00)
[2017-09-25] MEDS: INSULIN LISPRO 300 UNITS/3 ML INSULN.PEN. SQ ×5 (07:30→21:00)
[2017-09-25 08:01] LABS: POC GLUCOSE 114 mg/dL (70-99)
[2017-09-25] MEDS: carBAMazepine 200 MG TABLET PO ×3 (09:03→21:47)
[2017-09-25] MEDS: CALCIUM POLYCARBOPHIL 625 MG TABLET PO (09:03)
[2017-09-25] MEDS: busPIRone 5 MG TABLET. PO ×2 (09:03→21:47)
[2017-09-25] MEDS: POTASSIUM CHLORIDE 20 MEQ TABLET.ER. PO ×2 (09:03→12:48)
[2017-09-25] MEDS: LACTOBACILLUS RHAMNOSUS GG 1 CAPSULE. PO ×2 (09:04→21:47)
[2017-09-25] MEDS: PANTOPRAZOLE 40 MG TABLET.DR. PO ×2 (09:04→16:55)
[2017-09-25] MEDS: methylPREDNISolone SOD SUCC PF 40 MG/ML VIAL. IV (09:05)
[2017-09-25] MEDS: SUCRALFATE 1 GM TABLET. PO ×2 (09:14→21:47)
[2017-09-25 11:16] LABS: POC GLUCOSE 176 mg/dL (70-99)
[2017-09-25 16:32] LABS: POC GLUCOSE 258 mg/dL (70-99)
[2017-09-25 17:41] LABS: POTASSIUM 3.7 mmol/L (3.5-5.1)
[2017-09-25 20:52] LABS: POC GLUCOSE 183 mg/dL (70-99)
[2017-09-25] MEDS: NORTRIPTYLINE 25 MG CAPSULE PO (21:46)
[2017-09-25] MEDS: MIRTAZAPINE 15 MG TABLET PO (21:46)
[2017-09-25] MEDS: OLANZapine 5 MG TABLET PO (21:47)
[2017-09-25] MEDS: INSULIN GLARGINE 300 UNITS/3 ML INSULN.PEN. SQ (21:58)
[2017-09-26 06:12] LABS: HEMATOCRIT 24.9 % (39.0-53.0); HEMOGLOBIN 8.8 g/dL (13.0-17.5); MEAN CORPUSCULAR HEMOGLOBIN 32 pg (25-35); MEAN CORPUSCULAR HGB CONC 35 g/dL (31-37); MEAN CORPUSCULAR VOLUME 91 fL (79-100); PLATELET COUNT 314 x10^3/uL (140-400); RED BLOOD COUNT 2.74 x10^6/uL (4.30-5.70); RED CELL DISTRIBUTION WIDTH 14.3 % (11.5-14.5); WHITE BLOOD COUNT 11.4 x10^3/uL (4.0-11.0)
[2017-09-26 06:21] LABS: ALBUMIN 2.2 g/dL (3.4-5.0); ALBUMIN/GLOBULIN RATIO 0.5 (1.0-1.7); ALK PHOS 100 U/L (46-116); ALT (SGPT) 132 U/L (16-63); ANION GAP 14 (6-14); AST (SGOT) 47 U/L (15-37); BLOOD UREA NITROGEN 24 mg/dL (8-26); BUN/CREATININE RATIO 10 (6-20); CALCIUM 7.2 mg/dL (8.5-10.1); CARBON DIOXIDE 22 mmol/L (21-32); CHLORIDE 103 mmol/L (98-107); CREATININE 2.3 mg/dL (0.7-1.3); GFR 29.2; GLUCOSE 98 mg/dL (70-99); MAGNESIUM 1.3 mg/dL (1.8-2.4); POTASSIUM 3.2 mmol/L (3.5-5.1); SODIUM 139 mmol/L (136-145); TOTAL BILIRUBIN 0.3 mg/dL (0.2-1.0); TOTAL PROTEIN 6.5 g/dL (6.4-8.2)
[2017-09-26] MEDS: INSULIN LISPRO 300 UNITS/3 ML INSULN.PEN. SQ ×2 (07:30→11:30)
[2017-09-26 07:39] LABS: SEDIMENTATION RATE 108 (0-15)
[2017-09-26 07:48] LABS: POC GLUCOSE 100 mg/dL (70-99)
[2017-09-26] MEDS: IPRATRPIUM/ALBUTEROL 0.5/2.5MG 3 ML NEBU. NEB ×3 (08:11→16:36)
[2017-09-26] MEDS: BUDESONIDE 0.5 MG/2 ML NEBU. NEB (08:11)
[2017-09-26] MEDS: PANTOPRAZOLE 40 MG TABLET.DR. PO (08:45)
[2017-09-26] MEDS: busPIRone 5 MG TABLET. PO (08:46)
[2017-09-26] MEDS: predniSONE 20 MG TABLET PO (08:46)
[2017-09-26] MEDS: CALCIUM POLYCARBOPHIL 625 MG TABLET PO (08:46)
[2017-09-26] MEDS: carBAMazepine 200 MG TABLET PO ×2 (08:46→15:35)
[2017-09-26] MEDS: POTASSIUM CHLORIDE 20 MEQ TABLET.ER. PO ×2 (08:46→10:30)
[2017-09-26] MEDS: SUCRALFATE 1 GM TABLET. PO (08:46)
[2017-09-26] MEDS: LACTOBACILLUS RHAMNOSUS GG 1 CAPSULE. PO (08:46)
[2017-09-26] MEDS: IV NORMAL SALINE 1000ML BAG 1,000 ML IV (11:40)
[2017-09-26 12:11] LABS: POC GLUCOSE 120 mg/dL (70-99)
[2017-09-26] MEDS ORDERED: POLYETHYLENE GLYCOL 3350 17 GM PACKET. PO (12:45)
== END 2017-09-26 17:12 | disposition home or self-care (01) | DRG 871 ==
LOC: 6 SOUTH 09-19 16:54 → ER 09:50 → 1 WEST ICU 10:41
PROVIDERS: Internal Medicine
PROC: 5A1945Z Respiratory Ventilation, 24-96 Consecutive Hours (ICD-10-PCS; principal; 2017-09-24 07:38)
PROC: 0BH17EZ Insertion of Endotracheal Airway into Trachea, Via Natural or Artificial Opening (ICD-10-PCS; 2017-09-24 07:38)
PROC: B544ZZA Ultrasonography of Left Jugular Veins, Guidance (ICD-10-PCS; 2017-09-24 07:38)
PROC: 5A09357 Assistance with Respiratory Ventilation, Less than 24 Consecutive Hours, Continuous Positive Airway Pressure (ICD-10-PCS; 2017-09-24 07:38)
PROC: 5A09457 Assistance with Respiratory Ventilation, 24-96 Consecutive Hours, Continuous Positive Airway Pressure (ICD-10-PCS; 2017-09-24 07:38)
PROC: 5A09357 Assistance with Respiratory Ventilation, Less than 24 Consecutive Hours, Continuous Positive Airway Pressure (ICD-10-PCS; 2017-09-24 07:38)
PROC: 0DB58ZX Excision of Esophagus, Via Natural or Artificial Opening Endoscopic, Diagnostic (ICD-10-PCS; 2017-09-24 07:38)
PROC: 0DB78ZX Excision of Stomach, Pylorus, Via Natural or Artificial Opening Endoscopic, Diagnostic (ICD-10-PCS; 2017-09-24 07:38)
PROC: 0DJD8ZZ Inspection of Lower Intestinal Tract, Via Natural or Artificial Opening Endoscopic (ICD-10-PCS; 2017-09-24 07:38)
PROC: 02H633Z Insertion of Infusion Device into Right Atrium, Percutaneous Approach (ICD-10-PCS; 2017-09-24 07:38)
PROC: 02H633Z Insertion of Infusion Device into Right Atrium, Percutaneous Approach (ICD-10-PCS; 2017-09-24 07:38)
PROC: B244ZZZ Ultrasonography of Right Heart (ICD-10-PCS; 2017-09-24 07:38)
PROC: 5A1D70Z Performance of Urinary Filtration, Intermittent, Less than 6 Hours Per Day (ICD-10-PCS; 2017-09-24 07:38)
PROC: 5A1D70Z Performance of Urinary Filtration, Intermittent, Less than 6 Hours Per Day (ICD-10-PCS; 2017-09-24 07:38)
PROC: 5A1D70Z Performance of Urinary Filtration, Intermittent, Less than 6 Hours Per Day (ICD-10-PCS; 2017-09-24 07:38)
PROC: 5A1D70Z Performance of Urinary Filtration, Intermittent, Less than 6 Hours Per Day (ICD-10-PCS; 2017-09-24 07:38)
PROC: 5A1D70Z Performance of Urinary Filtration, Intermittent, Less than 6 Hours Per Day (ICD-10-PCS; 2017-09-24 07:38)
PROC: 5A1D70Z Performance of Urinary Filtration, Intermittent, Less than 6 Hours Per Day (ICD-10-PCS; 2017-09-24 07:38)
DX: A41.9 Sepsis, unspecified organism (principal); G93.40 Encephalopathy, unspecified; N17.0 Acute kidney failure with tubular necrosis; J96.01 Acute respiratory failure with hypoxia; R65.21 Severe sepsis with septic shock; E11.10 Type 2 diabetes mellitus with ketoacidosis without coma; J18.9 Pneumonia, unspecified organism; I12.0 Hypertensive chronic kidney disease with stage 5 chronic kidney disease or end stage renal disease; N18.6 End stage renal disease; J44.0 Chronic obstructive pulmonary disease with (acute) lower respiratory infection; D50.9 Iron deficiency anemia, unspecified; K57.30 Diverticulosis of large intestine without perforation or abscess without bleeding; E11.22 Type 2 diabetes mellitus with diabetic chronic kidney disease; E83.42 Hypomagnesemia; E83.51 Hypocalcemia; E87.6 Hypokalemia; F32.9 Major depressive disorder, single episode, unspecified; F41.9 Anxiety disorder, unspecified; G40.909 Epilepsy, unspecified, not intractable, without status epilepticus; K21.0 Gastro-esophageal reflux disease with esophagitis; K25.9 Gastric ulcer, unspecified as acute or chronic, without hemorrhage or perforation; K26.9 Duodenal ulcer, unspecified as acute or chronic, without hemorrhage or perforation; L89.91 Pressure ulcer of unspecified site, stage 1; F17.200 Nicotine dependence, unspecified, uncomplicated; Z51.5 Encounter for palliative care; Z88.8 Allergy status to other drugs, medicaments and biological substances; Z88.1 Allergy status to other antibiotic agents; Z79.84 Long term (current) use of oral hypoglycemic drugs; Z87.11 Personal history of peptic ulcer disease; Z82.49 Family history of ischemic heart disease and other diseases of the circulatory system
CPT/HCPCS: 36415; 36556; 36600; 45378; 71045; 74018; 76770; 76937; 80048; 80053; 80069; 80076; 81001; 81002; 82150; 82274; 82553; 82805; 82962; 83036; 83540; 83550; 83605; 83690; 83735; 83880; 84100; 84132; 85007; 85025; 85027; 85045; 85651; 86704; 86706; 87040; 87324; 87340; 87641; 93005; 93306; 94003; 94640; 94660; 94760; 96361; 96374; 96375; 97163-GP; 97166-GO; 97530-GO; 97530-GP; 97535-GO; 99291; 99291-25; C1769; C1892; C9113; J0330; J0456; J0610; J0696; J1650; J1815; J1940; J2020; J2250; J2270; J2405; J2543; J2704; J2920; J3010; J3475; J3480; J3490; J7030; J7040; J7042; J7050; J7512; J7613; J7620; J7626

== ENCOUNTER 2020-05-10 16:26 | Inpatient (IN) | payer OTHER ==
[~2020-05-10] VITALS: Ht 172.7 cm; Wt 103.6 kg
[~2020-05-10 16:26] MED LIST: ALBU2.5V8 IH; AMLO-186 PO; BUDE0.5A NEB; BUSP15TA PO; CALC-77 PO; CALC625T7 PO; CARB200T PO; CETI10TA74 PO; CICL6.1H3 IH; CLON0.2T PO; DOCU-109 PO; INSU100I11 SQ; INSU100I13 SQ; IPRA3AMP29 NEB; LISI-130 PO; METF500T16 PO; MIRT45TA PO; MONT10TA49 PO; NORT25CA PO; OLAN5TAB3 PO; POTA20TA4 PO; PRED20TA PO; RANI-376 PO; SIMV80TA PO; SUCR1TAB35 PO
[2020-05-10] MEDS ORDERED: IV NORMAL SALINE 1000ML BAG 1,000 ML IV ONE ×3 (16:45→20:00)
[2020-05-10] MEDS ORDERED: ONDANSETRON PF 4 MG/2 ML VIAL. IVP ONE (16:45)
--- NOTE | 2020-05-10 16:46 | ED.ADGEN ---
Past Medical History Past Medical History: Diabetes-Type II, Seizure Additional Past Surgical Histo: HERNIS, LEG LEG RECON Smoking Status: Former Smoker Alcohol Use: None Drug Use: None General Adult EDM: Chief Complaint: NEAR SYNCOPE HPI: HPI: Patient is a 59 year old male coming in from assisted after a "syncopal" episode. Patient states that since early this morning he has had numerous episodes of vomiting and diarrhea. Emesis is nonbloody nonbilious. No blood in the diarrhea or melena. Patient states that he was laying on his bed and next thing he knew he woke up in the medical clinic in the present. Patient states he does not think he fell asleep because he awakens very easily and sleeps with his eyes open and that he is difficult to arouse. Patient states he has similar event when he was taken to the hospital for severe hyperglycemia. Patient has a history of epilepsy, type 2 diabetes. Denies any cardiac history. Has a history of stroke with left-sided upper extremity weakness. Patient states he is mostly wheelchair-bound secondary to his seizures and that he rarely stands. Review of Systems: Review of Systems: Constitutional: Denies fever or chills. [] Eyes: Denies change in visual acuity. [] HENT: Denies nasal congestion or sore throat. [] Respiratory: Denies cough or shortness of breath. [] Cardiovascular: Denies chest pain or edema. [] GI: Denies abdominal pain, nausea, vomiting, bloody stools or diarrhea. [] : Denies dysuria. [] Musculoskeletal: Denies back pain or joint pain. [] Integument: Denies rash. [] Neurologic: Denies headache, focal weakness or sensory changes. [] Endocrine: Denies polyuria or polydipsia. [] Lymphatic: Denies swollen glands. [] Psychiatric: Denies depression or anxiety. [] Current Medications: Current Medications Medications (Trade) Dose Ordered Sig/Brandon Start Time Stop Time Status Last Admin Dose Admin Ondansetron HCl (Zofran) 4 mg 1X ONCE 05/10/20 16:45 05/10/20 16:46 DC 05/10/20 16:45 4 MG Sodium Chloride 1,000 ml @ 1,000 mls/hr 1X ONCE 05/10/20 18:15 05/10/20 19:14 DC 05/10/20 20:08 1,000 MLS/HR Allergies: Allergies: Allergies Coded Allergies Type Severity Reaction Last Updated Verified acetaminophen Adverse Reaction Severe NAUSEA AND VOMITING 09/24/17 Yes baclofen Adverse Reaction Severe Nausea and Vomiting 09/24/17 Yes ibuprofen Adverse Reaction Severe Nausea 09/24/17 Yes phenytoin Adverse Reaction Severe Nausea and Vomiting 09/24/17 Yes Physical Exam: PE: Constitutional: Well developed, well nourished, no acute distress, non-toxic appearance. [] HENT: Normocephalic, atraumatic, bilateral external ears normal, oropharynx moist, no oral exudates, nose normal. [] Eyes: PERRLA, EOMI, conjunctiva normal, no discharge. [] Neck: Normal range of motion, no tenderness, supple, no stridor. [] Cardiovascular:Heart rate regular rhythm, no murmur [] Lungs & Thorax: Bilateral breath sounds clear to auscultation [] Abdomen: Bowel sounds normal, soft, no tenderness, no masses, no pulsatile masses. [] Skin: Warm, dry, no erythema, no rash. [] Back: No tenderness, no CVA tenderness. [] Extremities: No tenderness, no cyanosis, no clubbing, ROM intact, no edema. [] Neurologic: Alert and oriented X 3, normal motor function, normal sensory function, no focal deficits noted. [] Psychologic: Affect normal, judgement normal, mood normal. [] Current Patient Data: Labs: Laboratory Tests Test 05/10/20 16:51 05/10/20 17:19 White Blood Count 23.5 x10^3/uL (4.0-11.0) H Red Blood Count 5.20 x10^6/uL (4.30-5.70) Hemoglobin 16.0 g/dL (13.0-17.5) Hematocrit 44.9 % (39.0-53.0) Mean Corpuscular Volume 86 fL (79-100) Mean Corpuscular Hemoglobin 31 pg (25-35) Mean Corpuscular Hemoglobin Concent 36 g/dL (31-37) Red Cell Distribution Width 15.5 % (11.5-14.5) H Platelet Count 357 x10^3/uL (140-400) Neutrophils (%) (Auto) 96 % (31-73) H Lymphocytes (%) (Auto) 2 % (24-48) L Monocytes (%) (Auto) 2 % (0-9) Eosinophils (%) (Auto) 0 % (0-3) Basophils (%) (Auto) 0 % (0-3) Neutrophils # (Auto) 22.5 x10^3/uL (1.8-7.7) H Lymphocytes # (Auto) 0.5 x10^3/uL (1.0-4.8) L Monocytes # (Auto) 0.5 x10^3/uL (0.0-1.1) Eosinophils # (Auto) 0.0 x10^3/uL (0.0-0.7) Basophils # (Auto) 0.0 x10^3/uL (0.0-0.2) Segmented Neutrophils % 67 % (35-66) H Band Neutrophils % 28 % (0-9) H Lymphocytes % 1 % (24-48) L Monocytes % 4 % (0-10) Platelet Estimate Adequate (ADEQUATE) D-Dimer (Jelena) < 0.27 ug/mlFEU Sodium Level 121 mmol/L (136-145) L Potassium Level 3.8 mmol/L (3.5-5.1) Chloride Level 86 mmol/L (98-107) L Carbon Dioxide Level 19 mmol/L (21-32) L Anion Gap 16 (6-14) H Blood Urea Nitrogen 17 mg/dL (8-26) Creatinine 2.5 mg/dL (0.7-1.3) H Estimated GFR (Cockcroft-Gault) 26.4 BUN/Creatinine Ratio 7 (6-20) Glucose Level 175 mg/dL (70-99) H Calcium Level 9.9 mg/dL (8.5-10.1) Total Bilirubin 0.3 mg/dL (0.2-1.0) Aspartate Amino Transferase (AST) 47 U/L (15-37) H Alanine Aminotransferase (ALT) 74 U/L (16-63) H Alkaline Phosphatase 48 U/L (46-116) Troponin I Quantitative < 0.017 ng/mL (0.000-0.055) EG-Pej-G-Type Natriuretic Peptide 99 pg/mL (0-124) Total Protein 8.5 g/dL (6.4-8.2) H Albumin 5.1 g/dL (3.4-5.0) H Albumin/Globulin Ratio 1.5 (1.0-1.7) Lipase 179 U/L (73-393) Carbamazepine (Tegretol) Level 10.8 mcg/mL (4.0-12.0) Carbamazepine Last Dose Date 05/09/20 Carbamazepine Last Dose Time 1900 Lactic Acid Level 3.7 mmol/L (0.4-2.0) H Laboratory Tests 05/10/20 16:51 Laboratory Tests 05/10/20 16:51 Vital Signs: Vital Signs Date Time Temp Pulse Resp B/P (MAP) Pulse Ox O2 Delivery O2 Flow Rate FiO2 05/10/20 19:15 87 97 05/10/20 16:26 97.1 18 115/66 (82) Room Air 97.1 EKG: EKG: [] Heart Score: Risk Factors: Risk Factors: DM, Current or recent (<one month) smoker, HTN, HLP, family history of CAD, obesity. Risk Scores: Score 0 - 3: 2.5% MACE over next 6 weeks - Discharge Home Score 4 - 6: 20.3% MACE over next 6 weeks - Admit for Clinical Observation Score 7 - 10: 72.7% MACE over next 6 weeks - Early Invasive Strategies Radiology/Procedures: Radiology/Procedures: [][facility] [address] [place] [address] IMAGING REPORT Signed PATIENT: ADONAY ABBOTT ACCOUNT: [id number] : 1960 LOCATION: ER AGE: 59 SEX: M EXAM STATUS: REG ER ORD. PHYSICIAN: RUBY BARAJAS MD REASON: vomiting PROCEDURE: CT ABDOMEN PELVIS WO CONTRAST Study: CT abdomen/pelvis without intravenous contrast Indication: Vomiting. Comparison: None. Technique: Helical CT imaging performed of the abdomen and pelvis without the use of intravenous contrast. Sagittal and coronal reformats were obtained. One or more of the following individualized dose reduction techniques were utilized for this examination: 1. Automated exposure control 2. Adjustment of the mA and/or kV according to patient size 3. Use of iterative reconstruction technique. Findings: Inherently limited evaluation without intravenous contrast. Diffuse hepatic parenchymal low-attenuation typical of hepatic steatosis. A subcentimeter focus of low attenuation within the liver, image 14 series 2, is incompletely characterized. There are a few foci of hepatic mineralization which could represent granulomas. Small gallstone on image 30 series 2. No manifestations of acute cholecystitis. Within normal limits biliary tree. Unremarkable pancreas, spleen and adrenal glands. Several small intrarenal stones on the right and areas of cortical scarring. No nephrolithiasis identified on the left. No hydroureteronephrosis. Unremarkable urinary bladder and prostate. The colon is distended with gas and incompletely formed stool. Scattered diverticuli without diverticulitis. No localized wall thickening or pericolonic inflammation. Mild gaseous and fluid distention of small bowel without transiti oning to collapse. The stomach is distended with ingested material. No discrete mass. Gas along portions of the gastric wall favored intraluminal as opposed to within the wall itself and there is no venous gas. Multifocal calcific atherosclerosis to include the aorta, aortic branch vessels and iliofemoral system. Nonaneurysmal aorta. Incomplete assessment for iliofemoral stenosis without contrast noting that there are some areas of dense calcific plaque such as within the proximal right superficial femoral artery. Curvilinear calcific plaque within the distal right common iliac artery, image 66 series 2, is incompletely characterized. No lymphadenopathy by size criteria. No free fluid or pneumoperitoneum. Subsolid right middle lobe nodular focus on image 2 series 2 measures 8 mm. No acute or focally aggressive osseous process. Impression: 1. Generalized distention of the colonic lumen with gas and incompletely formed stool. Scattered diverticuli but there are no findings of diverticulitis. No pathologic dilatation of small bowel. The findings are typical of a diarrheal state but without ancillary findings of an active colitis. No obstruction, pneumatosis or perforation. 2. Hepatic steatosis. 3. Subcentimeter low-attenuation focus within the liver is incompletely characterized but statistically most likely benign in the absence of a known malignancy. No dedicated follow-up is needed unless otherwise clinically indicated 4. Small solitary gallstone without findings of cholecystitis. 5. Several small intrarenal stones on the right. No collecting system obstruction. 6. Extensive calcific atherosclerosis with incomplete assessment for the degree of any resultant stenosis without contrast. 7. Subsolid nodule within the right middle lobe measuring [address] follow-up in 6-12 months per Fleischner guidelines. Electronically signed by: MONSERRAT KUMARI MD (05/10/2020 7:22 PM) [facility] DICTATED and SIGNED BY: MONSERRAT KUMARI MD DATE: 05/10/[id number] 0 [facility] [address] [place] [address] IMAGING REPORT Signed PATIENT: ADONAY ABBOTT ACCOUNT: [id number] : 1960 LOCATION: ER AGE: 59 SEX: M EXAM STATUS: REG ER ORD. PHYSICIAN: DAVIS ANTON DO REASON: FOUND UNRESPONSIVE IN [facility] CELL , CONFUSED. PROCEDURE: CT HEAD AND CERVICAL SPINE WO STUDY: CT head and cervical spine without contrast INDICATION: Found unresponsive. Confused. COMPARISON: None. TECHNIQUE: Axial CT imaging through the head and cervical spine without the use of intravenous contrast. Sagittal and coronal reformats were obtained. One or more of the following individualized dose reduction techniques were utilized for this examination: 1. Automated exposure control 2. Adjustment of the mA and/or kV according to patient size 3. Use of iterative reconstruction technique. FINDINGS: CT head: No acute intracranial hemorrhage. No CT evidence for an acute cortical infarction. No localized mass effect, midline shift or hydrocephalus. Intracranial calcific atherosclerosis. Brain parenchymal volume is within normal limits for patient age. Unremarkable scalp and orbits. Intact calvarium. CT cervical spine: No acute fracture or traumatic malalignment. Multilevel degenerative changes without evidence for severe central canal or neural foraminal stenosis on an osseous basis. Degenerative remodeling at the atlantodental interface. No soft tissue sequela of trauma seen throughout the neck. Multifocal calcific atherosclerosis. No apical pneumothorax. IMPRESSION: CT head: 1. No acute intracranial abnormality by CT. CT cervical spine: 1. No acute fracture or traumatic malalignment. 2. Multilevel cervical spine degenerative changes and scattered calcific atherosclerosis. Electronically signed by: MONSERRAT KUMARI MD (05/10/2020 6:56 PM) [facility] DICTATED and SIGNED BY: MONSERRAT KUMARI MD DATE: 05/10/[id number] 0 Course & Med Decision Making: Course & Med Decision Making Pertinent Labs and Imaging studies reviewed. (See chart for details) Patient is a 59-year-old male who was evaluated in ER due to nausea vomiting diarrhea and abdominal pain. Patient was found to be in severe dehydration and sepsis. Patient was given IV fluids, he will be admitted to hospital for further evaluation and treatment. Dragon Disclaimer: Dragon Disclaimer: This electronic medical record was generated, in whole or in part, using a voice recognition dictation system. Departure Departure Impression: Primary Impression: Dehydration Additional Impressions: Gastroenteritis Sepsis Disposition: 09 ADMITTED INPT THIS HOSP Admitting Physician: MICHELLE (Dr. Pepe) Condition: STABLE Referrals: NO PCP (PCP) Problem Qualifiers RUBY BARAJAS MD May 10, 2020 16:46 DAVIS ANTON DO May 10, 2020 19:41
[2020-05-10 16:58] LABS: BASO % 0 % (0-3); EOS % 0 % (0-3); HEMATOCRIT 44.9 % (39.0-53.0); LYMPH # 0.5 x10^3/uL (1.0-4.8); LYMPH % 2 % (24-48); MEAN CORPUSCULAR HEMOGLOBIN 31 pg (25-35); MEAN CORPUSCULAR HGB CONC 36 g/dL (31-37); MEAN CORPUSCULAR VOLUME 86 fL (79-100); MONO # 0.5 x10^3/uL (0.0-1.1); MONO % 2 % (0-9); NEUT # 22.5 x10^3/uL (1.8-7.7); NEUT % 96 % (31-73); PLATELET COUNT 357 x10^3/uL (140-400); RED CELL DISTRIBUTION WIDTH 15.5 % (11.5-14.5); WHITE BLOOD COUNT 23.5 x10^3/uL (4.0-11.0)
[2020-05-10 17:10] LABS: CALCIUM 9.9 mg/dL (8.5-10.1); CREATININE 2.5 mg/dL (0.7-1.3); GFR 26.4; POTASSIUM 3.8 mmol/L (3.5-5.1)
[2020-05-10 17:16] LABS: ALBUMIN 5.1 g/dL (3.4-5.0); ALBUMIN/GLOBULIN RATIO 1.5 (1.0-1.7); TOTAL BILIRUBIN 0.3 mg/dL (0.2-1.0); TOTAL PROTEIN 8.5 g/dL (6.4-8.2)
[2020-05-10 17:19] LABS: % BANDS 28 % (0-9); % LYMPHS 1 % (24-48); % MONOS 4 % (0-10); % SEGS 67 % (35-66); PLT ESTIMATE ADEQUATE (ADEQUATE)
--- NOTE | 2020-05-10 17:45 | EKG ---
[facility] [address] [place] [address] Test Date: 2020-05-10 Test Time: 16:40:11 Pat Name: ADONAY ABBOTT Department: Room: Gender: M [employer]: : 1960 Requested By: RUBY BARAJAS Order Number: [id number] Reading MD: Measurements Intervals [place] Rate: 99 P: 91 WV: 232 QRS: -1 QRSD: 90 T: 63 QT: 354 QTc: 460 Interpretive Statements SINUS RHYTHM VENTRICULAR PREMATURE COMPLEX(ES) PROLONGED WV INTERVAL LEFTWARD AXIS QRS(T) CONTOUR ABNORMALITY CONSIDER ANTEROSEPTAL MYOCARDIAL DAMAGE T ABNORMALITY IN HIGH LATERAL LEADS ABNORMAL ECG RI6.01 No previous ECG available for comparison
[2020-05-10 18:44] LABS: CARBAM 10.8 mcg/mL (4.0-12.0)
--- NOTE | 2020-05-10 18:58 | RAD ---
STUDY: CT head and cervical spine without contrast INDICATION: Found unresponsive. Confused. COMPARISON: None. TECHNIQUE: Axial CT imaging through the head and cervical spine without the use of intravenous contra st. Sagittal and coronal reformats were obtained. One or more of the following individualized dose reduction techniques were utilized for this examinat ion: 1. Automated exposure control 2. Adjustment of the mA and/or kV according to patient size 3. Use of iterative reconstruction technique. FINDINGS: CT head: No acute intracranial hemorrhage. No CT evidence for an acute cortical infarction. No localized mass effect, midline shift or hydrocephalus. Intracranial calcific atherosclerosis. Brain parenchymal volu me is within normal limits for patient age. Unremarkable scalp and orbits. Intact calvarium. CT cervical spine: No acute fracture or traumatic malalignment. Multilevel degenerative changes without evidence for sev ere central canal or neural foraminal stenosis on an osseous basis. Degenerative remodeling at the at lantodental interface. No soft tissue sequela of trauma seen throughout the neck. Multifocal calcific atherosclerosis. No ap ical pneumothorax. IMPRESSION: CT head: 1. No acute intracranial abnormality by CT. CT cervical spine: 1. No acute fracture or traumatic malalignment. 2. Multilevel cervical spine degenerative changes and scattered calcific atherosclerosis. Electronically signed by: MONSERRAT KUMARI MD (05/10/2020 6:56 PM) [facility]
--- NOTE | 2020-05-10 19:24 | RAD ---
Study: CT abdomen/pelvis without intravenous contrast Indication: Vomiting. Comparison: None. Technique: Helical CT imaging performed of the abdomen and pelvis without the use of intravenous cont rast. Sagittal and coronal reformats were obtained. One or more of the following individualized dose reduction techniques were utilized for this examinat ion: 1. Automated exposure control 2. Adjustment of the mA and/or kV according to patient size 3. Use of iterative reconstruction technique. Findings: Inherently limited evaluation without intravenous contrast. Diffuse hepatic parenchymal low-attenuation typical of hepatic steatosis. A subcentimeter focus of lo w attenuation within the liver, image 14 series 2, is incompletely characterized. There are a few foc i of hepatic mineralization which could represent granulomas. Small gallstone on image 30 series 2. N o manifestations of acute cholecystitis. Within normal limits biliary tree. Unremarkable pancreas, sp yvan and adrenal glands. Several small intrarenal stones on the right and areas of cortical scarring. No nephrolithiasis ident ified on the left. No hydroureteronephrosis. Unremarkable urinary bladder and prostate. The colon is distended with gas and incompletely formed stool. Scattered diverticuli without divertic ulitis. No localized wall thickening or pericolonic inflammation. Mild gaseous and fluid distention o f small bowel without transitioning to collapse. The stomach is distended with ingested material. No discrete mass. Gas along portions of the gastric wall favored intraluminal as opposed to within the w all itself and there is no venous gas. Multifocal calcific atherosclerosis to include the aorta, aortic branch vessels and iliofemoral syste m. Nonaneurysmal aorta. Incomplete assessment for iliofemoral stenosis without contrast noting that t here are some areas of dense calcific plaque such as within the proximal right superficial femoral ar merissa. Curvilinear calcific plaque within the distal right common iliac artery, image 66 series 2, is incompletely characterized. No lymphadenopathy by size criteria. No free fluid or pneumoperitoneum. Subsolid right middle lobe no dular focus on image 2 series 2 measures 8 mm. No acute or focally aggressive osseous process. Impression: 1. Generalized distention of the colonic lumen with gas and incompletely formed stool. Scattered div erticuli but there are no findings of diverticulitis. No pathologic dilatation of small bowel. The fi ndings are typical of a diarrheal state but without ancillary findings of an active colitis. No obstr uction, pneumatosis or perforation. 2. Hepatic steatosis. 3. Subcentimeter low-attenuation focus within the liver is incompletely characterized but statistica lly most likely benign in the absence of a known malignancy. No dedicated follow-up is needed unless otherwise clinically indicated 4. Small solitary gallstone without findings of cholecystitis. 5. Several small intrarenal stones on the right. No collecting system obstruction. 6. Extensive calcific atherosclerosis with incomplete assessment for the degree of any resultant nichole nosis without contrast. 7. Subsolid nodule within the right middle lobe measuring [address] follow-up in 6-12 months per Fleischner guidelines. Electronically signed by: MONSERRAT KUMARI MD (05/10/2020 7:22 PM) [facility]
[2020-05-10] MEDS ORDERED: ONDANSETRON PF 4 MG/2 ML VIAL. IV PRN (20:00)
[2020-05-10] MEDS ORDERED: LIDOCAINE 1% Multi-Dose 20 ML VIAL. ONE (20:02)
[2020-05-10] MEDS: IV NORMAL SALINE 1000ML BAG 1,000 ML IV SCH (20:09)
--- NOTE | 2020-05-10 21:31 | PDOC1 ---
History and Physical Date of Admission Date of Admission DATE: 05/10/20 TIME: 21:26 History of Present Illness History of Present Illness MR. Campbell is a prisoner at [place], he has not felt well for a few days. Weakness, then lower abd pain. pain worse today, and then nausea and vomiting and diarrhea. almost no PO intake today, marked nausea, and has some vomit still in his [place]. he passed out today in his cell, taken to [facility], looked ill, brought here. he has gotten prior UTI, no prior known GI disease. seizrue disorder known ,compliant with all meds Past Medical History Cardiovascular: CHF, HTN Psych: No pertinent hx Musculoskeletal: low back pain Endocrine: Diabetes Past Surgical History Past Surgical History: No pertinent history Family History Family History: Hypertension Social History Smoke: No ALCOHOL: none Drugs: None Current Problem List Problem List Problems Medical Problems: (1) Dehydration Status: Acute (2) Gastroenteritis Status: Acute (3) Sepsis Status: Acute Current Medications Current Medications Current Medications Sodium Chloride 1,000 ml @ 1,000 mls/hr 1X ONCE IV Last administered on 05/10/20at 16:45; Start 05/10/20 at 16:45; Stop 05/10/20 at 17:44; Status DC Ondansetron HCl (Zofran) 4 mg 1X ONCE IVP Last administered on 05/10/20at 16:45; Start 05/10/20 at 16:45; Stop 05/10/20 at 16:46; Status DC Sodium Chloride 1,000 ml @ 1,000 mls/hr 1X ONCE IV Last administered on 05/10/20at 20:08; Start 05/10/20 at 18:15; Stop 05/10/20 at 19:14; Status DC Metronidazole 100 ml @ 100 mls/hr 1X ONCE IV Last administered on 05/10/20at 20:08; Start 05/10/20 at 20:00; Stop 05/10/20 at 20:59; Status DC Ondansetron HCl (Zofran) 4 mg PRN Q8HRS PRN IV NAUSEA/VOMITING; Start 05/10/20 at 20:00; Stop 05/11/20 at 19:59 Sodium Chloride 1,000 ml @ 125 mls/hr Q8H IV Last administered on 05/10/20at 20:09; Start 05/10/20 at 20:00; Stop 05/11/20 at 19:59 Sodium Chloride 1,000 ml @ 1,000 mls/hr 1X ONCE IV Last administered on 05/10/20at 20:09; Start 05/10/20 at 20:00; Stop 05/10/20 at 20:59; Status DC Lidocaine HCl (Lidocaine 1% 20ml Vial) 20 ml STK-MED ONCE .ROUTE ; Start 05/10/20 at 20:02; Stop 05/10/20 at 20:02; Status DC Active Scripts Active Humalog (Insulin Lispro) 100 Unit/1 Ml Insuln.pen 0 Units SQ QIDACHS 30 Days Lantus Solostar (Insulin Glargine,Hum.rec.anlog) 100 Unit/1 Ml Insuln.pen 30 Units SQ QHS 30 Days please adjust dose when off prednisone by mouth in 5 days Prednisone 20 Mg Tablet 20 Mg PO DAILY 5 Days Carafate (Sucralfate) 1 Gm Tablet 1 Gm PO ACHS 30 Days Budesonide 0.5 Mg/2 Ml Ampul.neb 0.5 Mg NEB RTBID 30 Days Klor-Con M20 (Potassium Chloride) 20 Meq Tab.er.prt 40 Meq PO DAILYWBKFT 30 Days Duoneb 0.5-3(2.5) Mg/3 Ml (Albuterol/Ipratropium) 3 Ml Ampul.neb 3 Ml NEB RTQID 30 Days Reported Zyrtec (Cetirizine Hcl) 10 Mg Tablet 1 Tab PO DAILY Zyprexa (Olanzapine) 5 Mg Tablet 1 Tab PO QHS Zocor (Simvastatin) 80 Mg Tablet 80 Mg PO HS Zantac (Ranitidine Hcl) 150 Mg Tablet 1 Tab PO BID Tegretol (Carbamazepine) 200 Mg Tablet 1 Tab PO TID Montelukast Sodium Tablet (Montelukast Sodium) 10 Mg Tablet 1 Tab PO DAILY Remeron (Mirtazapine) 45 Mg Tablet 1 Tab PO QHS Proair Hfa (Albuterol Sulfate) 8.5 Gm Hfa.aer.ad 8.5 Gm IH Calcium + D3 Er Tablet (Calcium Carb & Cit/Vitamin D3) 1 Each Tablet.er 1 Each PO Nortriptyline Hcl 25 Mg Capsule 2 Cap PO QHS Metformin Hcl 500 Mg Tablet 500 Mg PO BIDWMEALS Lisinopril 40 Mg Tablet 1 Tab PO DAILY Fiber Lax (Calcium Polycarbophil) 625 Mg Tablet 625 Mg PO Colace (Docusate Sodium) 100 Mg Capsule 1 Cap PO BID Clonidine Hcl 0.2 Mg Tablet 1 Tab PO QHS Buspirone Hcl 15 Mg Tablet 1 Tab PO BID Amlodipine Besylate 5 Mg Tablet 5 Mg PO DAILY Alvesco (Ciclesonide) 6.1 Gm Hfa.aer.ad 6.1 Gm IH BID Allergies Allergies: Coded Allergies: acetaminophen (Verified Adverse Reaction, Severe, NAUSEA AND VOMITING, 09/24/17) baclofen (Verified Adverse Reaction, Severe, Nausea and Vomiting, 09/24/17) ibuprofen (Verified Adverse Reaction, Severe, Nausea, 09/24/17) phenytoin (Verified Adverse Reaction, Severe, Nausea and Vomiting, 09/24/17) ROS General: YES: Chills, Fatigue, Malaise; No: Night Sweats, Appetite, Other PSYCHOLOGICAL ROS: YES: Sleep disturbances; No: Anxiety, Behavioral Disorder, Concentration difficultie, Decreased libido, Depression, Disorientation, Hallucinations, Hostility, Irritablity, Memory difficulties, Mood Swings, Obsessive thoughts, Physical abuse, Sexual abuse, Suicidal ideation, Other Eyes: No Blurry vision, No Decreased vision, No Double vision, No Dry eyes, No Excessive tearing, No Eye Pain, No Itchy Eyes, No Loss of vision, No Photophobia, No Scotomata, No Uses contacts, No Uses glasses, No Other Respiratory: No: Cough, Hemoptysis, Orthopnea, Pleuritic Pain, Shortness of breath, SOB with excertion, Sputum Changes, Stridor, Tachypnea, Wheezing, Other Cardiovascular: No Chest Pain, No Palpitations, No Orthopnea, No Paroxysmal Noc. Dyspnea, No Edema, No Lt Headedness, No Other Gastrointestinal: Yes Nausea, Yes Vomiting, Yes Abdominal Pain, Yes Diarrhea Genitourinary: No Dysuria, No Frequency, No Incontinence, No Hematuria, No Retention, No Discharge, No Urgency, No Pain, No Flank Pain, No Other, No , No , No , No , No , No , No Musculoskeletal: Yes Joint Pain; No Gait Disturbance, No Joint Stiffness, No Joint Swelling, No Muscle Pain, No Muscular Weakness, No Pain In:, No Swelling In:, No Other Neurological: No Behavorial Changes, No Bowel/Bladder ControlChng, No Confusion , No Dizziness, No Gait Disturbance, No Headaches, No Impaired Coord/balance, No Memory Loss, No Numbness/Tingling, No Seizures, No Speech Problems, No Tremors, No Visual Changes, No Weakness, No Other Skin: No Dry Skin, No Eczema, No Hair Changes, No Lumps, No Mole Changes, No Mottling, No Nail Changes, No Pruritus, No Rash, No Skin Lesion Changes, No Other, No Acne Physical Exam General: Alert, Cooperative, mild distress HEENT: PERRLA, Mucous membr. moist/pink Heart: S1S2, no murmurs Rectal Exam: not examined Extremities: No clubbing Skin: No significant lesion Neuro: Normal gait, Normal speech, Strength at 5/5 X4 ext, Sensation intact Vitals Vitals Vital Signs Date Time Temp Pulse Resp B/P (MAP) Pulse Ox O2 Delivery O2 Flow Rate FiO2 05/10/20 20:45 91 98 05/10/20 16:26 97.1 18 115/66 (82) Room Air 97.1 Labs Labs Laboratory Tests Test 05/10/20 16:51 05/10/20 17:19 White Blood Count 23.5 x10^3/uL (4.0-11.0) Red Blood Count 5.20 x10^6/uL (4.30-5.70) Hemoglobin 16.0 g/dL (13.0-17.5) Hematocrit 44.9 % (39.0-53.0) Mean Corpuscular Volume 86 fL (79-100) Mean Corpuscular Hemoglobin 31 pg (25-35) Mean Corpuscular Hemoglobin Concent 36 g/dL (31-37) Red Cell Distribution Width 15.5 % (11.5-14.5) Platelet Count 357 x10^3/uL (140-400) Neutrophils (%) (Auto) 96 % (31-73) Lymphocytes (%) (Auto) 2 % (24-48) Monocytes (%) (Auto) 2 % (0-9) Eosinophils (%) (Auto) 0 % (0-3) Basophils (%) (Auto) 0 % (0-3) Neutrophils # (Auto) 22.5 x10^3/uL (1.8-7.7) Lymphocytes # (Auto) 0.5 x10^3/uL (1.0-4.8) Monocytes # (Auto) 0.5 x10^3/uL (0.0-1.1) Eosinophils # (Auto) 0.0 x10^3/uL (0.0-0.7) Basophils # (Auto) 0.0 x10^3/uL (0.0-0.2) Segmented Neutrophils % 67 % (35-66) Band Neutrophils % 28 % (0-9) Lymphocytes % 1 % (24-48) Monocytes % 4 % (0-10) Platelet Estimate Adequate (ADEQUATE) D-Dimer (Jelena) < 0.27 ug/mlFEU Sodium Level 121 mmol/L (136-145) Potassium Level 3.8 mmol/L (3.5-5.1) Chloride Level 86 mmol/L (98-107) Carbon Dioxide Level 19 mmol/L (21-32) Anion Gap 16 (6-14) Blood Urea Nitrogen 17 mg/dL (8-26) Creatinine 2.5 mg/dL (0.7-1.3) Estimated GFR (Cockcroft-Gault) 26.4 BUN/Creatinine Ratio 7 (6-20) Glucose Level 175 mg/dL (70-99) Calcium Level 9.9 mg/dL (8.5-10.1) Total Bilirubin 0.3 mg/dL (0.2-1.0) Aspartate Amino Transf (AST/SGOT) 47 U/L (15-37) Alanine Aminotransferase (ALT/SGPT) 74 U/L (16-63) Alkaline Phosphatase 48 U/L (46-116) Troponin I Quantitative < 0.017 ng/mL (0.000-0.055) TO-Fla-U-Type Natriuretic Peptide 99 pg/mL (0-124) Total Protein 8.5 g/dL (6.4-8.2) Albumin 5.1 g/dL (3.4-5.0) Albumin/Globulin Ratio 1.5 (1.0-1.7) Lipase 179 U/L (73-393) Carbamazepine (Tegretol) Level 10.8 mcg/mL (4.0-12.0) Carbamazepine Last Dose Date 05/09/20 Carbamazepine Last Dose Time 1900 Lactic Acid Level 3.7 mmol/L (0.4-2.0) Laboratory Tests Test 05/10/20 16:51 05/10/20 17:19 White Blood Count 23.5 x10^3/uL (4.0-11.0) Red Blood Count 5.20 x10^6/uL (4.30-5.70) Hemoglobin 16.0 g/dL (13.0-17.5) Hematocrit 44.9 % (39.0-53.0) Mean Corpuscular Volume 86 fL (79-100) Mean Corpuscular Hemoglobin 31 pg (25-35) Mean Corpuscular Hemoglobin Concent 36 g/dL (31-37) Red Cell Distribution Width 15.5 % (11.5-14.5) Platelet Count 357 x10^3/uL (140-400) Neutrophils (%) (Auto) 96 % (31-73) Lymphocytes (%) (Auto) 2 % (24-48) Monocytes (%) (Auto) 2 % (0-9) Eosinophils (%) (Auto) 0 % (0-3) Basophils (%) (Auto) 0 % (0-3) Neutrophils # (Auto) 22.5 x10^3/uL (1.8-7.7) Lymphocytes # (Auto) 0.5 x10^3/uL (1.0-4.8) Monocytes # (Auto) 0.5 x10^3/uL (0.0-1.1) Eosinophils # (Auto) 0.0 x10^3/uL (0.0-0.7) Basophils # (Auto) 0.0 x10^3/uL (0.0-0.2) Segmented Neutrophils % 67 % (35-66) Band Neutrophils % 28 % (0-9) Lymphocytes % 1 % (24-48) Monocytes % 4 % (0-10) Platelet Estimate Adequate (ADEQUATE) D-Dimer (Jelena) < 0.27 ug/mlFEU Sodium Level 121 mmol/L (136-145) Potassium Level 3.8 mmol/L (3.5-5.1) Chloride Level 86 mmol/L (98-107) Carbon Dioxide Level 19 mmol/L (21-32) Anion Gap 16 (6-14) Blood Urea Nitrogen 17 mg/dL (8-26) Creatinine 2.5 mg/dL (0.7-1.3) Estimated GFR (Cockcroft-Gault) 26.4 BUN/Creatinine Ratio 7 (6-20) Glucose Level 175 mg/dL (70-99) Calcium Level 9.9 mg/dL (8.5-10.1) Total Bilirubin 0.3 mg/dL (0.2-1.0) Aspartate Amino Transf (AST/SGOT) 47 U/L (15-37) Alanine Aminotransferase (ALT/SGPT) 74 U/L (16-63) Alkaline Phosphatase 48 U/L (46-116) Troponin I Quantitative < 0.017 ng/mL (0.000-0.055) SP-Sjk-E-Type Natriuretic Peptide 99 pg/mL (0-124) Total Protein 8.5 g/dL (6.4-8.2) Albumin 5.1 g/dL (3.4-5.0) Albumin/Globulin Ratio 1.5 (1.0-1.7) Lipase 179 U/L (73-393) Carbamazepine (Tegretol) Level 10.8 mcg/mL (4.0-12.0) Carbamazepine Last Dose Date 05/09/20 Carbamazepine Last Dose Time 1900 Lactic Acid Level 3.7 mmol/L (0.4-2.0) VTE Prophylaxis Ordered VTE Prophylaxis Devices: No VTE Pharmacological Prophylaxi: Yes Assessment/Plan Assessment/Plan nausea and vomiting and diarrhea, acute viral enteritis sepsis from GI acute dehydration and vasomotor nephropathy and hyponatremia, hypovolemic Dm2 IV fluid given, he feels a liltle btter Justifications for Admission Other Justification ETHAN VAZQUEZ MD May 10, 2020 21:31
[2020-05-10] MEDS ORDERED: OLAN2.5T3 PO (21:49)
[2020-05-10] MEDS ORDERED: INSU100V31 SQ (21:49)
[2020-05-10] MEDS ORDERED: INSU100C4 SQ (21:49)
[2020-05-10] MEDS ORDERED: novolog (21:49)
[2020-05-10] MEDS ORDERED: CALC625T7 PO (21:49)
[2020-05-10] MEDS ORDERED: OLAN5TAB3 PO (21:49)
[2020-05-10 22:40] VITALS: BP 124/79
[2020-05-10 22:45] LABS: CALCIUM 8.1 mg/dL (8.5-10.1); CREATININE 1.7 mg/dL (0.7-1.3); GFR 41.2
[2020-05-10] MEDS ORDERED: NORTRIPTYLINE 25 MG CAPSULE PO SCH (23:30)
[2020-05-10] MEDS ORDERED: OLANZapine 5 MG TABLET PO SCH (23:30)
[2020-05-10] MEDS ORDERED: MIRTAZAPINE 15 MG TABLET PO SCH (23:30)
[2020-05-11] MEDS: carBAMazepine 200 MG TABLET PO SCH ×2 (00:18→08:58)
[2020-05-11] MEDS: HEPARIN for SUB-Q USE 5,000 UNIT/ML VIAL. SQ SCH ×2 (00:25→09:14)
[2020-05-11 03:00] VITALS: BP 126/76
[2020-05-11] MEDS: IV NORMAL SALINE 1000ML BAG 1,000 ML IV SCH (05:31)
[2020-05-11 07:00] VITALS: BP 132/83
--- NOTE | 2020-05-11 08:28 | PDOC ---
[employer] PROGRESS NOTE Date of Service DOS: DATE: 05/11/20 TIME: 08:20 Chief Complaint Chief Complaint Assessment/Plan nausea and vomiting and diarrhea, acute viral enteritis sepsis from GI acute dehydration and vasomotor nephropathy and hyponatremia, hypovolemic Dm2 Improving with IV fluids History of Present Illness History of Present Illness MR. Campbell is a prisoner at [place], he has not felt well for a few days. Weakness, then lower abd pain. pain worse today, and then nausea and vomiting and diarrhea. almost no PO intake today, marked nausea, and has some vomit still in his [place]. he passed out today in his cell, taken to [facility], looked ill, brought here. He has gotten prior UTI, no prior known GI disease. seizrue disorder known ,compliant with all meds. 05/11: Patient is afebrile, breathing on room air. He denies any further nausea, vomiting, or diarrhea. COVID-19 pending, but is not require this test result to return to [place]. He may discharge today pending his morning labs. Greater than 30 minutes was spent managing discharge this patient. Vitals/I&O Vitals/I&O: Vital Signs Date Time Temp Pulse Resp B/P (MAP) Pulse Ox O2 Delivery O2 Flow Rate FiO2 05/11/20 03:00 98.8 89 20 126/76 (93) 96 Room Air 98.8 I & O 05/10/20 05/10/20 05/11/20 15:00 23:00 07:00 Intake Total 1000 ml 1500 ml Output Total 400 ml Balance 1000 ml 1100 ml Physical Exam General: Alert, Cooperative, No acute distress Heart: Regular rate Lungs: Clear Abdomen: Soft, No masses Extremities: No clubbing Skin: No significant lesion Labs Labs: Laboratory Tests Test 05/10/20 16:51 05/10/20 17:19 05/10/20 21:10 05/10/20 22:30 White Blood Count 23.5 x10^3/uL (4.0-11.0) Red Blood Count 5.20 x10^6/uL (4.30-5.70) Hemoglobin 16.0 g/dL (13.0-17.5) Hematocrit 44.9 % (39.0-53.0) Mean Corpuscular Volume 86 fL (79-100) Mean Corpuscular Hemoglobin 31 pg (25-35) Mean Corpuscular Hemoglobin Concent 36 g/dL (31-37) Red Cell Distribution Width 15.5 % (11.5-14.5) Platelet Count 357 x10^3/uL (140-400) Neutrophils (%) (Auto) 96 % (31-73) Lymphocytes (%) (Auto) 2 % (24-48) Monocytes (%) (Auto) 2 % (0-9) Eosinophils (%) (Auto) 0 % (0-3) Basophils (%) (Auto) 0 % (0-3) Neutrophils # (Auto) 22.5 x10^3/uL (1.8-7.7) Lymphocytes # (Auto) 0.5 x10^3/uL (1.0-4.8) Monocytes # (Auto) 0.5 x10^3/uL (0.0-1.1) Eosinophils # (Auto) 0.0 x10^3/uL (0.0-0.7) Basophils # (Auto) 0.0 x10^3/uL (0.0-0.2) Segmented Neutrophils % 67 % (35-66) Band Neutrophils % 28 % (0-9) Lymphocytes % 1 % (24-48) Monocytes % 4 % (0-10) Platelet Estimate Adequate (ADEQUATE) D-Dimer (Jelena) < 0.27 ug/mlFEU Sodium Level 121 mmol/L (136-145) 125 mmol/L (136-145) Potassium Level 3.8 mmol/L (3.5-5.1) 4.0 mmol/L (3.5-5.1) Chloride Level 86 mmol/L (98-107) 93 mmol/L (98-107) Carbon Dioxide Level 19 mmol/L (21-32) 23 mmol/L (21-32) Anion Gap 16 (6-14) 9 (6-14) Blood Urea Nitrogen 17 mg/dL (8-26) 19 mg/dL (8-26) Creatinine 2.5 mg/dL (0.7-1.3) 1.7 mg/dL (0.7-1.3) Estimated GFR (Cockcroft-Gault) 26.4 41.2 BUN/Creatinine Ratio 7 (6-20) Glucose Level 175 mg/dL (70-99) 118 mg/dL (70-99) Calcium Level 9.9 mg/dL (8.5-10.1) 8.1 mg/dL (8.5-10.1) Total Bilirubin 0.3 mg/dL (0.2-1.0) Aspartate Amino Transf (AST/SGOT) 47 U/L (15-37) Alanine Aminotransferase (ALT/SGPT) 74 U/L (16-63) Alkaline Phosphatase 48 U/L (46-116) Troponin I Quantitative < 0.017 ng/mL (0.000-0.055) RR-Hco-O-Type Natriuretic Peptide 99 pg/mL (0-124) Total Protein 8.5 g/dL (6.4-8.2) Albumin 5.1 g/dL (3.4-5.0) Albumin/Globulin Ratio 1.5 (1.0-1.7) Lipase 179 U/L (73-393) Carbamazepine (Tegretol) Level 10.8 mcg/mL (4.0-12.0) Carbamazepine Last Dose Date 05/09/20 Carbamazepine Last Dose Time 1900 Lactic Acid Level 3.7 mmol/L (0.4-2.0) 1.6 mmol/L (0.4-2.0) Review of Systems Review of Systems: Denies nausea, denies vomiting, denies diarrhea, denies chest pain, denies shortness of breath Assessment and Plan Assessmemt and Plan Problems Medical Problems: (1) Dehydration Status: Acute (2) Gastroenteritis Status: Acute (3) Sepsis Status: Acute Comment Review of Relevant I have reviewed the following items riley (where applicable) has been applied. Medications: Current Medications Medications (Trade) Dose Ordered Sig/Brandon Route PRN Reason Start Time Stop Time Status Last Admin Dose Admin Sodium Chloride 1,000 ml @ 1,000 mls/hr 1X ONCE IV 05/10/20 16:45 05/10/20 17:44 DC 05/10/20 16:45 Ondansetron HCl (Zofran) 4 mg 1X ONCE IVP 05/10/20 16:45 05/10/20 16:46 DC 05/10/20 16:45 Sodium Chloride 1,000 ml @ 1,000 mls/hr 1X ONCE IV 05/10/20 18:15 05/10/20 19:14 DC 05/10/20 20:08 Metronidazole 100 ml @ 100 mls/hr 1X ONCE IV 05/10/20 20:00 05/10/20 20:59 DC 05/10/20 20:08 Sodium Chloride 1,000 ml @ 125 mls/hr Q8H IV 05/10/20 20:00 05/11/20 19:59 05/11/20 05:31 Sodium Chloride 1,000 ml @ 1,000 mls/hr 1X ONCE IV 05/10/20 20:00 05/10/20 20:59 DC 05/10/20 20:09 Heparin Sodium (Porcine) (Heparin Sodium) 5,000 unit BID SQ 05/10/20 22:00 05/11/20 00:25 Carbamazepine (TEGretol) 200 mg TID PO 05/10/20 23:30 05/11/20 00:18 Nortriptyline HCl (Pamelor) 50 mg QHS PO 05/10/20 23:30 05/11/20 00:18 Olanzapine (ZyPREXA) 5 mg 1600 PO 05/10/20 23:30 05/11/20 00:18 Mirtazapine (Remeron) 45 mg QHS PO 05/10/20 23:30 05/11/20 00:17 Justifications for Admission Other Justification ANABEL CHEUNG MD May 11, 2020 08:28
[2020-05-11 09:05] LABS: BASO % 0 % (0-3); EOS % 1 % (0-3); HEMOGLOBIN 12.6 g/dL (13.0-17.5); LYMPH # 1.4 x10^3/uL (1.0-4.8); LYMPH % 17 % (24-48); MEAN CORPUSCULAR HEMOGLOBIN 31 pg (25-35); MEAN CORPUSCULAR HGB CONC 36 g/dL (31-37); MEAN CORPUSCULAR VOLUME 87 fL (79-100); MONO # 0.6 x10^3/uL (0.0-1.1); MONO % 7 % (0-9); NEUT # 6.1 x10^3/uL (1.8-7.7); NEUT % 75 % (31-73); PLATELET COUNT 261 x10^3/uL (140-400); RED BLOOD COUNT 4.04 x10^6/uL (4.30-5.70); RED CELL DISTRIBUTION WIDTH 15.2 % (11.5-14.5); WHITE BLOOD COUNT 8.1 x10^3/uL (4.0-11.0)
[2020-05-11 09:41] LABS: ALBUMIN 3.7 g/dL (3.4-5.0); ALBUMIN/GLOBULIN RATIO 1.5 (1.0-1.7); CREATININE 1.1 mg/dL (0.7-1.3); GFR 68.1; POTASSIUM 3.9 mmol/L (3.5-5.1); TOTAL BILIRUBIN 0.2 mg/dL (0.2-1.0); TOTAL PROTEIN 6.2 g/dL (6.4-8.2)
[2020-05-11 11:00] VITALS: BP 135/85
[2020-05-11 12:09] LABS: BILIRUBIN,URINE NEGATIVE (NEG); CLARITY,URINE CLEAR; COLOR,URINE YELLOW; NITRITE,URINE NEGATIVE (NEG); PROTEIN,URINE NEGATIVE (NEG-TRACE); UROBILINOGEN,URINE 0.2 mg/dL (0.2 mg/dL)
[2020-05-11 12:21] LABS: BACTERIA,URINE FEW /HPF (0-FEW); RBC,URINE 0 /HPF (0-2); WBC,URINE RARE /HPF (0-4)
--- NOTE | 2020-05-11 14:10 | PDOC3 ---
Discharge Summary Visit Information Date of Admission: May 10, 2020 Date of Discharge: May 11, 2020 Final Diagnosis Problems Medical Problems: (1) Dehydration Status: Acute (2) Gastroenteritis Status: Acute (3) Sepsis Status: Acute Brief Hospital Course Allergies Allergies Coded Allergies Type Severity Reaction Last Updated Verified acetaminophen Adverse Reaction Severe NAUSEA AND VOMITING 09/24/17 Yes baclofen Adverse Reaction Severe Nausea and Vomiting 09/24/17 Yes ibuprofen Adverse Reaction Severe Nausea 09/24/17 Yes phenytoin Adverse Reaction Severe Nausea and Vomiting 09/24/17 Yes Vital Signs Vital Signs Date Time Temp Pulse Resp B/P (MAP) Pulse Ox O2 Delivery O2 Flow Rate FiO2 05/11/20 11:00 97.3 85 18 135/85 (102) 99 Room Air 97.3 Lab Results Laboratory Tests Test 05/10/20 16:51 05/10/20 17:19 05/10/20 21:10 05/10/20 22:30 White Blood Count 23.5 x10^3/uL (4.0-11.0) Red Blood Count 5.20 x10^6/uL (4.30-5.70) Hemoglobin 16.0 g/dL (13.0-17.5) Hematocrit 44.9 % (39.0-53.0) Mean Corpuscular Volume 86 fL (79-100) Mean Corpuscular Hemoglobin 31 pg (25-35) Mean Corpuscular Hemoglobin Concent 36 g/dL (31-37) Red Cell Distribution Width 15.5 % (11.5-14.5) Platelet Count 357 x10^3/uL (140-400) Neutrophils (%) (Auto) 96 % (31-73) Lymphocytes (%) (Auto) 2 % (24-48) Monocytes (%) (Auto) 2 % (0-9) Eosinophils (%) (Auto) 0 % (0-3) Basophils (%) (Auto) 0 % (0-3) Neutrophils # (Auto) 22.5 x10^3/uL (1.8-7.7) Lymphocytes # (Auto) 0.5 x10^3/uL (1.0-4.8) Monocytes # (Auto) 0.5 x10^3/uL (0.0-1.1) Eosinophils # (Auto) 0.0 x10^3/uL (0.0-0.7) Basophils # (Auto) 0.0 x10^3/uL (0.0-0.2) Segmented Neutrophils % 67 % (35-66) Band Neutrophils % 28 % (0-9) Lymphocytes % 1 % (24-48) Monocytes % 4 % (0-10) Platelet Estimate Adequate (ADEQUATE) D-Dimer (Jelena) < 0.27 ug/mlFEU Sodium Level 121 mmol/L (136-145) 125 mmol/L (136-145) Potassium Level 3.8 mmol/L (3.5-5.1) 4.0 mmol/L (3.5-5.1) Chloride Level 86 mmol/L (98-107) 93 mmol/L (98-107) Carbon Dioxide Level 19 mmol/L (21-32) 23 mmol/L (21-32) Anion Gap 16 (6-14) 9 (6-14) Blood Urea Nitrogen 17 mg/dL (8-26) 19 mg/dL (8-26) Creatinine 2.5 mg/dL (0.7-1.3) 1.7 mg/dL (0.7-1.3) Estimated GFR (Cockcroft-Gault) 26.4 41.2 BUN/Creatinine Ratio 7 (6-20) Glucose Level 175 mg/dL (70-99) 118 mg/dL (70-99) Calcium Level 9.9 mg/dL (8.5-10.1) 8.1 mg/dL (8.5-10.1) Total Bilirubin 0.3 mg/dL (0.2-1.0) Aspartate Amino Transf (AST/SGOT) 47 U/L (15-37) Alanine Aminotransferase (ALT/SGPT) 74 U/L (16-63) Alkaline Phosphatase 48 U/L (46-116) Troponin I Quantitative < 0.017 ng/mL (0.000-0.055) ZH-Zel-P-Type Natriuretic Peptide 99 pg/mL (0-124) Total Protein 8.5 g/dL (6.4-8.2) Albumin 5.1 g/dL (3.4-5.0) Albumin/Globulin Ratio 1.5 (1.0-1.7) Lipase 179 U/L (73-393) Carbamazepine (Tegretol) Level 10.8 mcg/mL (4.0-12.0) Carbamazepine Last Dose Date 05/09/20 Carbamazepine Last Dose Time 1900 Lactic Acid Level 3.7 mmol/L (0.4-2.0) 1.6 mmol/L (0.4-2.0) Test 05/11/20 07:45 05/11/20 08:21 05/11/20 11:27 White Blood Count 8.1 x10^3/uL (4.0-11.0) Red Blood Count 4.04 x10^6/uL (4.30-5.70) Hemoglobin 12.6 g/dL (13.0-17.5) Hematocrit 35.0 % (39.0-53.0) Mean Corpuscular Volume 87 fL (79-100) Mean Corpuscular Hemoglobin 31 pg (25-35) Mean Corpuscular Hemoglobin Concent 36 g/dL (31-37) Red Cell Distribution Width 15.2 % (11.5-14.5) Platelet Count 261 x10^3/uL (140-400) Neutrophils (%) (Auto) 75 % (31-73) Lymphocytes (%) (Auto) 17 % (24-48) Monocytes (%) (Auto) 7 % (0-9) Eosinophils (%) (Auto) 1 % (0-3) Basophils (%) (Auto) 0 % (0-3) Neutrophils # (Auto) 6.1 x10^3/uL (1.8-7.7) Lymphocytes # (Auto) 1.4 x10^3/uL (1.0-4.8) Monocytes # (Auto) 0.6 x10^3/uL (0.0-1.1) Eosinophils # (Auto) 0.0 x10^3/uL (0.0-0.7) Basophils # (Auto) 0.0 x10^3/uL (0.0-0.2) Sodium Level 127 mmol/L (136-145) Potassium Level 3.9 mmol/L (3.5-5.1) Chloride Level 94 mmol/L (98-107) Carbon Dioxide Level 21 mmol/L (21-32) Anion Gap 12 (6-14) Blood Urea Nitrogen 13 mg/dL (8-26) Creatinine 1.1 mg/dL (0.7-1.3) Estimated GFR (Cockcroft-Gault) 68.1 BUN/Creatinine Ratio 12 (6-20) Glucose Level 108 mg/dL (70-99) Calcium Level 8.0 mg/dL (8.5-10.1) Total Bilirubin 0.2 mg/dL (0.2-1.0) Aspartate Amino Transf (AST/SGOT) 31 U/L (15-37) Alanine Aminotransferase (ALT/SGPT) 53 U/L (16-63) Alkaline Phosphatase 35 U/L (46-116) Total Protein 6.2 g/dL (6.4-8.2) Albumin 3.7 g/dL (3.4-5.0) Albumin/Globulin Ratio 1.5 (1.0-1.7) Procalcitonin 0.34 ng/mL (0.00-0.10) Urine Collection Type Unknown Urine Color Yellow Urine Clarity Clear Urine pH 7.0 (<5.0-8.0) Urine Specific Boyd 1.010 (1.000-1.030) Urine Protein Negative mg/dL (NEG-TRACE) Urine Glucose (UA) Negative mg/dL (NEG) Urine Ketones (Stick) Negative mg/dL (NEG) Urine Blood Negative (NEG) Urine Nitrite Negative (NEG) Urine Bilirubin Negative (NEG) Urine Urobilinogen Dipstick 0.2 mg/dL (0.2 mg/dL) Urine Leukocyte Esterase Negative (NEG) Urine RBC 0 /HPF (0-2) Urine WBC Rare /HPF (0-4) Urine Bacteria Few /HPF (0-FEW) Laboratory Tests Test 05/10/20 16:51 05/10/20 17:19 05/10/20 21:10 05/10/20 22:30 White Blood Count 23.5 x10^3/uL (4.0-11.0) Red Blood Count 5.20 x10^6/uL (4.30-5.70) Hemoglobin 16.0 g/dL (13.0-17.5) Hematocrit 44.9 % (39.0-53.0) Mean Corpuscular Volume 86 fL (79-100) Mean Corpuscular Hemoglobin 31 pg (25-35) Mean Corpuscular Hemoglobin Concent 36 g/dL (31-37) Red Cell Distribution Width 15.5 % (11.5-14.5) Platelet Count 357 x10^3/uL (140-400) Neutrophils (%) (Auto) 96 % (31-73) Lymphocytes (%) (Auto) 2 % (24-48) Monocytes (%) (Auto) 2 % (0-9) Eosinophils (%) (Auto) 0 % (0-3) Basophils (%) (Auto) 0 % (0-3) Neutrophils # (Auto) 22.5 x10^3/uL (1.8-7.7) Lymphocytes # (Auto) 0.5 x10^3/uL (1.0-4.8) Monocytes # (Auto) 0.5 x10^3/uL (0.0-1.1) Eosinophils # (Auto) 0.0 x10^3/uL (0.0-0.7) Basophils # (Auto) 0.0 x10^3/uL (0.0-0.2) Segmented Neutrophils % 67 % (35-66) Band Neutrophils % 28 % (0-9) Lymphocytes % 1 % (24-48) Monocytes % 4 % (0-10) Platelet Estimate Adequate (ADEQUATE) D-Dimer (Jelena) < 0.27 ug/mlFEU Sodium Level 121 mmol/L (136-145) 125 mmol/L (136-145) Potassium Level 3.8 mmol/L (3.5-5.1) 4.0 mmol/L (3.5-5.1) Chloride Level 86 mmol/L (98-107) 93 mmol/L (98-107) Carbon Dioxide Level 19 mmol/L (21-32) 23 mmol/L (21-32) Anion Gap 16 (6-14) 9 (6-14) Blood Urea Nitrogen 17 mg/dL (8-26) 19 mg/dL (8-26) Creatinine 2.5 mg/dL (0.7-1.3) 1.7 mg/dL (0.7-1.3) Estimated GFR (Cockcroft-Gault) 26.4 41.2 BUN/Creatinine Ratio 7 (6-20) Glucose Level 175 mg/dL (70-99) 118 mg/dL (70-99) Calcium Level 9.9 mg/dL (8.5-10.1) 8.1 mg/dL (8.5-10.1) Total Bilirubin 0.3 mg/dL (0.2-1.0) Aspartate Amino Transf (AST/SGOT) 47 U/L (15-37) Alanine Aminotransferase (ALT/SGPT) 74 U/L (16-63) Alkaline Phosphatase 48 U/L (46-116) Troponin I Quantitative < 0.017 ng/mL (0.000-0.055) EE-Ube-W-Type Natriuretic Peptide 99 pg/mL (0-124) Total Protein 8.5 g/dL (6.4-8.2) Albumin 5.1 g/dL (3.4-5.0) Albumin/Globulin Ratio 1.5 (1.0-1.7) Lipase 179 U/L (73-393) Carbamazepine (Tegretol) Level 10.8 mcg/mL (4.0-12.0) Carbamazepine Last Dose Date 05/09/20 Carbamazepine Last Dose Time 1900 Lactic Acid Level 3.7 mmol/L (0.4-2.0) 1.6 mmol/L (0.4-2.0) Test 05/11/20 07:45 05/11/20 08:21 05/11/20 11:27 White Blood Count 8.1 x10^3/uL (4.0-11.0) Red Blood Count 4.04 x10^6/uL (4.30-5.70) Hemoglobin 12.6 g/dL (13.0-17.5) Hematocrit 35.0 % (39.0-53.0) Mean Corpuscular Volume 87 fL (79-100) Mean Corpuscular Hemoglobin 31 pg (25-35) Mean Corpuscular Hemoglobin Concent 36 g/dL (31-37) Red Cell Distribution Width 15.2 % (11.5-14.5) Platelet Count 261 x10^3/uL (140-400) Neutrophils (%) (Auto) 75 % (31-73) Lymphocytes (%) (Auto) 17 % (24-48) Monocytes (%) (Auto) 7 % (0-9) Eosinophils (%) (Auto) 1 % (0-3) Basophils (%) (Auto) 0 % (0-3) Neutrophils # (Auto) 6.1 x10^3/uL (1.8-7.7) Lymphocytes # (Auto) 1.4 x10^3/uL (1.0-4.8) Monocytes # (Auto) 0.6 x10^3/uL (0.0-1.1) Eosinophils # (Auto) 0.0 x10^3/uL (0.0-0.7) Basophils # (Auto) 0.0 x10^3/uL (0.0-0.2) Sodium Level 127 mmol/L (136-145) Potassium Level 3.9 mmol/L (3.5-5.1) Chloride Level 94 mmol/L (98-107) Carbon Dioxide Level 21 mmol/L (21-32) Anion Gap 12 (6-14) Blood Urea Nitrogen 13 mg/dL (8-26) Creatinine 1.1 mg/dL (0.7-1.3) Estimated GFR (Cockcroft-Gault) 68.1 BUN/Creatinine Ratio 12 (6-20) Glucose Level 108 mg/dL (70-99) Calcium Level 8.0 mg/dL (8.5-10.1) Total Bilirubin 0.2 mg/dL (0.2-1.0) Aspartate Amino Transf (AST/SGOT) 31 U/L (15-37) Alanine Aminotransferase (ALT/SGPT) 53 U/L (16-63) Alkaline Phosphatase 35 U/L (46-116) Total Protein 6.2 g/dL (6.4-8.2) Albumin 3.7 g/dL (3.4-5.0) Albumin/Globulin Ratio 1.5 (1.0-1.7) Procalcitonin 0.34 ng/mL (0.00-0.10) Urine Collection Type Unknown Urine Color Yellow Urine Clarity Clear Urine pH 7.0 (<5.0-8.0) Urine Specific Boyd 1.010 (1.000-1.030) Urine Protein Negative mg/dL (NEG-TRACE) Urine Glucose (UA) Negative mg/dL (NEG) Urine Ketones (Stick) Negative mg/dL (NEG) Urine Blood Negative (NEG) Urine Nitrite Negative (NEG) Urine Bilirubin Negative (NEG) Urine Urobilinogen Dipstick 0.2 mg/dL (0.2 mg/dL) Urine Leukocyte Esterase Negative (NEG) Urine RBC 0 /HPF (0-2) Urine WBC Rare /HPF (0-4) Urine Bacteria Few /HPF (0-FEW) Brief Hospital Course Mr. Campbell is a 59 old male [facility] in the who presented with gastroenteritis, dehydration. He received IV normal saline and antiemetics. Patient reports improvement of symptoms, and was stable for discharge. Discharge Information Condition at Discharge: Stable Disposition/Orders: D/C to Another Facility Scheduled Amlodipine Besylate (Amlodipine Besylate) 5 Mg Tablet, 5 MG PO DAILY, (Reported) Entered as Reported by: RL FONTANEZ on 09/09/171254 Last Action: Reviewed on 05/10/202148 by SUSAN MONSALVE Calcium Polycarbophil (Fiber Lax) 625 Mg Tablet, 1,250 MG PO BID for stol softener, (Reported) Entered as Reported by: SUSAN MONSALVE on 05/10/202148 Last Action: Reviewed on 05/10/202252 by SUSAN MONSALVE Carbamazepine (Tegretol) 200 Mg Tablet, 1 TAB PO TID, #60 Ref 1 (Reported) Entered as Reported by: RL FONTANEZ on 09/09/171254 Last Action: Continued on 05/10/202303 by SUSAN MONSALVE Cetirizine Hcl (Zyrtec) 10 Mg Tablet, 1 TAB PO DAILY, #30 Ref 2 (Reported) Entered as Reported by: RL FONTANEZ on 09/09/171254 Last Action: Reviewed on 05/10/202148 by SUSAN MONSALVE Ciclesonide (Alvesco) 6.1 Gm Hfa.aer.ad, 6.1 GM IH BID, (Reported) Entered as Reported by: RL FONTANEZ on 09/09/171254 Last Action: Reviewed on 05/10/202148 by SUSAN MONSALVE Clonidine Hcl (Clonidine Hcl) 0.2 Mg Tablet, 1 TAB PO QHS, #30 Ref 1 (Reported) Entered as Reported by: RL FONTANEZ on 09/09/171254 Last Action: Reviewed on 05/10/202148 by SUSAN MONSALVE Docusate Sodium (Colace) 100 Mg Capsule, 1 CAP PO BID, #60 (Reported) Entered as Reported by: RL FONTANEZ on 09/09/171254 Last Action: Reviewed on 05/10/202148 by SUSAN MONSALVE Insulin Aspart (Novolog) 100 Unit/1 Ml Cartridge, 15 UNIT SQ breakfast for blod glucose, (Reported) Entered as Reported by: SUSAN MONSALVE on 05/10/202148 Last Action: Reviewed on 05/10/202252 by SUSAN MONSALVE Insulin Aspart (Novolog) 100 Unit/1 Ml Vial, 15 UNIT SQ supper for blood glucose, (Reported) Entered as Reported by: SUSAN MONSALVE on 05/10/202148 Last Action: Reviewed on 05/10/202252 by SUSAN MONSALVE Lisinopril (Lisinopril) 40 Mg Tablet, 1 TAB PO DAILY, #30 Ref 5 (Reported) Entered as Reported by: RL FONTANEZ on 09/09/171254 Last Action: Reviewed on 05/10/202148 by SUSAN MONSALVE Metformin Hcl (Metformin Hcl) 500 Mg Tablet, 500 MG PO BIDWMEALS for ANTI- DIABETIC, Ref 0 (Reported) Entered as Reported by: RL FONTANEZ on 09/09/171254 Last Action: Reviewed on 05/10/202148 by SUSAN MONSALVE Mirtazapine (Remeron) 45 Mg Tablet, 1 TAB PO QHS, #30 Ref 1 (Reported) Entered as Reported by: RL FONTANEZ on 09/09/171254 Last Action: Converted on 05/10/202303 by SUSAN MONSALVE Montelukast Sodium (Montelukast Sodium Tablet ) 10 Mg Tablet, 1 TAB PO DAILY, #30 Ref 5 (Reported) Entered as Reported by: RL FONTANEZ on 09/09/171254 Last Action: Reviewed on 05/10/202148 by SUSAN MONSALVE Nortriptyline Hcl (Nortriptyline Hcl) 25 Mg Capsule, 2 CAP PO QHS, #30 Ref 3 (Reported) Entered as Reported by: RL FONTANEZ on 09/09/171254 Last Action: Continued on 05/10/202303 by SUSAN MONSALVE Olanzapine (Zyprexa) 2.5 Mg Tablet, 2.5 MG PO DAILY for psych, (Reported) Entered as Reported by: SUSAN MONSALVE on 05/10/202148 Last Action: Reviewed on 05/10/202252 by SUSAN MONSALVE Olanzapine (Zyprexa) 5 Mg Tablet, 5 MG PO 1600 for psych, (Reported) Entered as Reported by: SUSAN MONSALVE on 05/10/202148 Last Action: Continued on 05/10/202303 by SUSAN MONSALVE Simvastatin (Zocor) 80 Mg Tablet, 80 MG PO HS for FOR CHOLESTEROL, #30 Ref 0 (Reported) Entered as Reported by: RL FONTANEZ on 09/09/171254 Last Action: Reviewed on 05/10/202148 by SUSAN MONSALVE Miscellaneous Medications Albuterol Sulfate (Proair Hfa) 8.5 Gm Hfa.aer.ad, 8.5 GM IH, (Reported) Entered as Reported by: RL FONTANEZ on 09/09/171254 Last Action: Reviewed on 05/10/202148 by SUSAN MONSALVE Calcium Carb & Cit/Vitamin D3 (Calcium + D3 Er Tablet) 1 Each Tablet.er, 1 EACH PO, (Reported) Entered as Reported by: RL FONTANEZ on 09/09/171254 Last Action: Reviewed on 05/10/202148 by SUSAN MONSALVE [novolog] , Unknown Dose for sliding scale coverageover 151, (Reported) Entered as Reported by: SUSAN MONSALVE on 05/10/202148 Last Taken: UNKNOWN on Unknown Date & Time Last Action: Reviewed on 05/10/202252 by SUSAN MONSALVE Justicifation of Admission Dx: Justifications for Admission: Justification of Admission Dx: Yes (Dehydration, FERNANDA) ANABEL CHEUNG MD May 11, 2020 14:10
[2020-05-11 15:00] VITALS: BP 139/83
== END 2020-05-11 15:30 | DRG 871 ==
LOC: ER 16:26 → EEVIPCON 16:26 → 5 NORTH 19:35
PROVIDERS: ADMIT Internal Medicine; ATTEND Internal Medicine
DX: A41.9 Sepsis, unspecified organism (principal); N17.0 Acute kidney failure with tubular necrosis; E87.1 Hypo-osmolality and hyponatremia; G40.909 Epilepsy, unspecified, not intractable, without status epilepticus; N20.0 Calculus of kidney; I11.0 Hypertensive heart disease with heart failure; I50.9 Heart failure, unspecified; E86.0 Dehydration; A08.4 Viral intestinal infection, unspecified; K76.0 Fatty (change of) liver, not elsewhere classified; E86.1 Hypovolemia; K80.20 Calculus of gallbladder without cholecystitis without obstruction; M47.812 Spondylosis without myelopathy or radiculopathy, cervical region; E11.9 Type 2 diabetes mellitus without complications; Z87.891 Personal history of nicotine dependence; I69.334 Monoplegia of upper limb following cerebral infarction affecting left non-dominant side; Z99.3 Dependence on wheelchair; Z79.899 Other long term (current) drug therapy; Z82.49 Family history of ischemic heart disease and other diseases of the circulatory system; Z87.440 Personal history of urinary (tract) infections; Z79.4 Long term (current) use of insulin; Z88.6 Allergy status to analgesic agent; Z88.8 Allergy status to other drugs, medicaments and biological substances
CPT/HCPCS: 36415; 36600; 70450; 72125; 74176; 80048; 80053; 80156; 81001; 83605; 83690; 83880; 84145; 84484; 85007; 85025; 85379; 93005; J1644; J2405; J3490; J7030; G0378